=== PATIENT | male | born 1965 | race African-American/Black ===

== ENCOUNTER 2021-08-28 10:51 | Inpatient (IN) | payer OTHER ==
[~2021-08-28] VITALS: Ht 182.9 cm; Wt 180.7 kg
[2021-08-28 12:54] LABS: BASOPHILS % 0.8 % (0.0-2.0); CHLORIDE 101 mEq/L (98-107); HEMATOCRIT. 39.9 % (42.0-52.0); LYMPHOCYTES % 12.9 % (20.0-50.0); MEAN CORPUSCULAR HEMOGLOBIN 28.4 pg (28.0-32.0); MEAN CORPUSCULAR VOLUME 86.8 fL (80.0-94.0); MEAN PLATELET VOLUME 8.8 fl (7.4-10.4); MONOCYTES % 9.9 % (2.0-8.0); NEUTROPHILS % 73.4 % (40.0-76.0); PLATELET 223 x1000/uL (130-400); RED BLOOD CELL COUNT 4.59 mill/uL (4.7-6.1); RED CELL DISTRIBUTION WIDTH 18.5 % (11.6-14.6)
[2021-08-28] MEDS ORDERED: CLONIDINE 0.2MG TABLET PO ONE (16:15)
[2021-08-28] MEDS ORDERED: HYDROCHLOROTHIAZIDE 25MG TABLET PO ONE (16:15)
[2021-08-28] MEDS ORDERED: LABETALOL HCL VIAL 20 MG/4 ML VIAL IV ONE (17:15)
[2021-08-28] MEDS ORDERED: IPRATROPIUM/ALBUTEROL 0.5-3(2.5)MG/3ML NEB NEB PRN (22:30)
[2021-08-28] MEDS ORDERED: MORPHINE SULFATE 2 MG/ML CPJ (NOT FOR IM USE) IV PRN (22:30)
[2021-08-28] MEDS ORDERED: ONDANSETRON HCL 4MG/2ML INJ IV PRN (22:30)
[2021-08-28] MEDS: ACETAMINOPHEN 325MG TABLET PO PRN (23:35)
[2021-08-28] MEDS: AMLODIPINE 10MG TABLET PO SCH (23:35)
[2021-08-28] MEDS: ENOXAPARIN 40MG/0.4ML SYR SUBCUT SCH (23:35)
[2021-08-28 23:39] VITALS: BP 151/88
[2021-08-29] VITALS (7 sets, daily range): BP systolic 115–151; BP diastolic 63–88
[2021-08-29 08:14] LABS: BASOPHILS % 0.3 % (0.0-2.0); EOSINOPHILS % 4.7 % (0.0-5.0); HEMOGLOBIN. 11.3 g/dL (14.0-18.0); LYMPHOCYTES % 12.9 % (20.0-50.0); MEAN CORPUSCULAR HEMOGLOBIN 27.9 pg (28.0-32.0); MEAN CORPUSCULAR VOLUME 86.2 fL (80.0-94.0); MEAN PLATELET VOLUME 8.6 fl (7.4-10.4); MONOCYTES % 12.2 % (2.0-8.0); NEUTROPHILS % 69.9 % (40.0-76.0); PLATELET 199 x1000/uL (130-400); RED BLOOD CELL COUNT 4.06 mill/uL (4.7-6.1); RED CELL DISTRIBUTION WIDTH 18.6 % (11.6-14.6)
[2021-08-29 08:35] LABS: CHLORIDE 102 mEq/L (98-107)
[2021-08-29 08:41] LABS: PHOSPHORUS 3.4 mg/dL (2.5-4.9)
[2021-08-29] MEDS: AMLODIPINE 10MG TABLET PO SCH (08:41)
[2021-08-29 08:43] LABS: CREATINE KINASE 67 IU/L (39-308)
[2021-08-29 08:44] LABS: CREATINE KINASE MB FRACTION 1.6 ng/mL (0.5-3.6)
[2021-08-29 09:25] LABS: CLARITY URINE CLEAR (CLEAR); COLOR URINE DARK YELLOW (YELLOW); KETONES URINE TRACE (NEGATIVE); LEUKOCYTE ESTERASE URINE TRACE (NEGATIVE); NITRITE URINE POSITIVE (NEGATIVE); OCCULT BLOOD URINE NEGATIVE (NEGATIVE); PH URINE 5.5 (4.5-8.0); PROTEIN URINE 1+ (NEGATIVE); SPECIFIC GRAVITY URINE 1.022 (1.005-1.030)
[2021-08-29] MEDS: ENOXAPARIN 40MG/0.4ML SYR SUBCUT SCH (10:08)
[2021-08-29] MEDS ORDERED: MAGNESIUM 2 G PREMIX 50 ML IV SCH (12:00)
[2021-08-29] MEDS: ACETAMINOPHEN 325MG TABLET PO PRN (13:50)
[2021-08-29] MEDS: CEFTRIAXONE 1,000 MG in DEXTROSE 5% WATER 50 ML IV SCH (15:41)
[2021-08-29 17:35] LABS: CREATINE KINASE MB FRACTION 1.5 ng/mL (0.5-3.6)
[2021-08-30] VITALS: BP 139/86
[2021-08-30] MEDS: ENOXAPARIN 40MG/0.4ML SYR SUBCUT SCH ×2 (00:14→10:44)
[2021-08-30 03:47] VITALS: BP 130/82
[2021-08-30 08:00] VITALS: BP 160/94
[2021-08-30] MEDS: AMLODIPINE 10MG TABLET PO SCH (08:14)
[2021-08-30] MEDS: CLONIDINE 0.1MG TABLET PO PRN ×2 (08:15→20:22)
[2021-08-30 12:00] VITALS: BP 146/85
[2021-08-30 16:00] VITALS: BP 140/88
[2021-08-30] MEDS: CEFTRIAXONE 1,000 MG in DEXTROSE 5% WATER 50 ML IV SCH (16:55)
[2021-08-30 20:00] VITALS: BP 172/98
[2021-08-30] MEDS: LOSARTAN POTASSIUM 50 MG TABLET PO SCH (20:45)
[2021-08-31] VITALS: BP 135/80
[2021-08-31] MEDS: ACETAMINOPHEN 325MG TABLET PO PRN (00:10)
[2021-08-31] MEDS: ENOXAPARIN 40MG/0.4ML SYR SUBCUT SCH ×3 (00:10→23:28)
[2021-08-31 04:00] VITALS: BP 153/81
[2021-08-31 08:11] VITALS: BP 147/76
[2021-08-31] MEDS: AMLODIPINE 10MG TABLET PO SCH (08:39)
[2021-08-31] MEDS: LOSARTAN POTASSIUM 50 MG TABLET PO SCH (08:39)
[2021-08-31] MEDS: ASCORBIC ACID 500 MG TABLET PO SCH (08:39)
[2021-08-31] MEDS: ZINC SULFATE 220 MG ( 50 ) CAPSULE PO SCH (08:40)
[2021-08-31 12:25] VITALS: BP 140/91
[2021-08-31 15:33] VITALS: BP 150/89
[2021-08-31] MEDS: CEFTRIAXONE 1,000 MG in DEXTROSE 5% WATER 50 ML IV SCH (15:52)
[2021-08-31] MEDS ORDERED: VITAMINS A AND D OINT TUBE TOP PRN (16:00)
[2021-08-31 20:00] VITALS: BP 147/86
[2021-08-31] MEDS: CLONIDINE 0.1MG TABLET PO PRN (23:31)
[2021-09-01] VITALS: BP 166/98
[2021-09-01 04:00] VITALS: BP 167/106
[2021-09-01] MEDS: CLONIDINE 0.1MG TABLET PO PRN (05:47)
[2021-09-01 07:53] VITALS: BP 143/87
[2021-09-01] MEDS: LOSARTAN POTASSIUM 50 MG TABLET PO SCH (08:49)
[2021-09-01] MEDS: AMLODIPINE 10MG TABLET PO SCH (08:49)
[2021-09-01] MEDS: ASCORBIC ACID 500 MG TABLET PO SCH (08:50)
[2021-09-01] MEDS: ZINC SULFATE 220 MG ( 50 ) CAPSULE PO SCH (08:50)
[2021-09-01] MEDS: ENOXAPARIN 150MG/ML SYR SUBCUT SCH ×2 (10:18→21:36)
[2021-09-01 12:56] VITALS: BP 142/81
[2021-09-01 15:35] VITALS: BP 127/74
[2021-09-01] MEDS: CEFTRIAXONE 1,000 MG in DEXTROSE 5% WATER 50 ML IV SCH (15:44)
[2021-09-01 20:00] VITALS: BP 132/84
[2021-09-01] MEDS: ATORVASTATIN CALCIUM 40MG TABLET PO SCH (21:38)
[2021-09-02] VITALS: BP 132/80
[2021-09-02 04:00] VITALS: BP 129/80
[2021-09-02 06:14] LABS: BASOPHILS % 0.8 % (0.0-2.0); EOSINOPHILS % 4.3 % (0.0-5.0); HEMATOCRIT. 34.3 % (42.0-52.0); HEMOGLOBIN. 11.2 g/dL (14.0-18.0); LYMPHOCYTES % 16.2 % (20.0-50.0); MEAN CORPUSCULAR HEMOGLOBIN 28.2 pg (28.0-32.0); MEAN CORPUSCULAR VOLUME 86.5 fL (80.0-94.0); MEAN PLATELET VOLUME 8.4 fl (7.4-10.4); MONOCYTES % 13.3 % (2.0-8.0); NEUTROPHILS % 65.4 % (40.0-76.0); PLATELET 254 x1000/uL (130-400); RED BLOOD CELL COUNT 3.96 mill/uL (4.7-6.1); RED CELL DISTRIBUTION WIDTH 17.8 % (11.6-14.6)
[2021-09-02 06:31] LABS: INR 1.1; PROTHROMBIN TIME 11.4 sec (9.6-11.0)
[2021-09-02 07:25] LABS: CHLORIDE 101 mEq/L (98-107)
[2021-09-02 08:00] VITALS: BP 139/96
[2021-09-02] MEDS: ASCORBIC ACID 500 MG TABLET PO SCH (08:49)
[2021-09-02] MEDS: ENOXAPARIN 150MG/ML SYR SUBCUT SCH ×2 (08:50→21:12)
[2021-09-02] MEDS: AMLODIPINE 10MG TABLET PO SCH (08:50)
[2021-09-02] MEDS: ZINC SULFATE 220 MG ( 50 ) CAPSULE PO SCH (08:50)
[2021-09-02] MEDS: LOSARTAN POTASSIUM 50 MG TABLET PO SCH (08:50)
[2021-09-02] MEDS: ASPIRIN 81MG TABLET PO SCH (08:51)
[2021-09-02 12:00] VITALS: BP_SYST 115; BP_DIAS 69; BP_DIAS 80
[2021-09-02 16:00] VITALS: BP 108/75
[2021-09-02] MEDS: CEFTRIAXONE 1,000 MG in DEXTROSE 5% WATER 50 ML IV SCH (16:38)
[2021-09-02 17:35] LABS: VITAMIN B12 SERUM 363 pg/mL (211-911)
[2021-09-02 20:00] VITALS: BP_SYST 135; BP_SYST 142; BP_DIAS 80; BP_DIAS 85
[2021-09-02] MEDS: ATORVASTATIN CALCIUM 40MG TABLET PO SCH (21:12)
[2021-09-03] VITALS: BP 115/71
[2021-09-03 04:00] VITALS: BP 148/68
[2021-09-03 08:00] VITALS: BP 134/79
[2021-09-03] MEDS: ZINC SULFATE 220 MG ( 50 ) CAPSULE PO SCH (08:28)
[2021-09-03] MEDS: ENOXAPARIN 150MG/ML SYR SUBCUT SCH (08:28)
[2021-09-03] MEDS: LOSARTAN POTASSIUM 50 MG TABLET PO SCH (08:28)
[2021-09-03] MEDS: ASPIRIN 81MG TABLET PO SCH (08:28)
[2021-09-03] MEDS: ASCORBIC ACID 500 MG TABLET PO SCH (08:29)
[2021-09-03] MEDS: AMLODIPINE 10MG TABLET PO SCH (08:29)
[2021-09-03 12:00] VITALS: BP 120/77
[2021-09-03 16:00] VITALS: BP 125/66
[2021-09-03] MEDS: APIXABAN 5 MG TABLET PO SCH (17:14)
[2021-09-03 20:00] VITALS: BP 137/62
[2021-09-03] MEDS: ATORVASTATIN CALCIUM 40MG TABLET PO SCH (21:45)
[2021-09-04] VITALS: BP 132/87
[2021-09-04 04:00] VITALS: BP 129/76
[2021-09-04 08:00] VITALS: BP 131/73
[2021-09-04] MEDS: ATORVASTATIN CALCIUM 40MG TABLET PO SCH (09:09)
[2021-09-04] MEDS: AMLODIPINE 10MG TABLET PO SCH (09:09)
[2021-09-04] MEDS: ZINC SULFATE 220 MG ( 50 ) CAPSULE PO SCH (09:09)
[2021-09-04] MEDS: ASCORBIC ACID 500 MG TABLET PO SCH (09:09)
[2021-09-04] MEDS: ASPIRIN 81MG TABLET PO SCH (09:10)
[2021-09-04] MEDS: APIXABAN 5 MG TABLET PO SCH ×2 (09:10→19:14)
[2021-09-04] MEDS: LOSARTAN POTASSIUM 50 MG TABLET PO SCH (09:10)
[2021-09-04 12:00] VITALS: BP 128/71
[2021-09-04 16:00] VITALS: BP 132/86
[2021-09-04 20:00] VITALS: BP 127/61
[2021-09-05] VITALS: BP 128/85
[2021-09-05 04:00] VITALS: BP 146/85
[2021-09-05 08:00] VITALS: BP 138/86
[2021-09-05] MEDS: AMLODIPINE 10MG TABLET PO SCH (08:50)
[2021-09-05] MEDS: APIXABAN 5 MG TABLET PO SCH ×2 (08:50→16:55)
[2021-09-05] MEDS: ASPIRIN 81MG TABLET PO SCH (08:50)
[2021-09-05] MEDS: LOSARTAN POTASSIUM 50 MG TABLET PO SCH (08:50)
[2021-09-05] MEDS: ASCORBIC ACID 500 MG TABLET PO SCH (08:50)
[2021-09-05] MEDS: ZINC SULFATE 220 MG ( 50 ) CAPSULE PO SCH (08:50)
[2021-09-05 12:00] VITALS: BP 126/78
[2021-09-05 16:00] VITALS: BP 120/73
[2021-09-05 20:00] VITALS: BP 131/80
[2021-09-05] MEDS: ATORVASTATIN CALCIUM 40MG TABLET PO SCH (21:58)
[2021-09-06] VITALS (7 sets, daily range): BP systolic 110–158; BP diastolic 70–101
[2021-09-06] MEDS: CLONIDINE 0.1MG TABLET PO PRN (04:36)
[2021-09-06] MEDS: AMLODIPINE 10MG TABLET PO SCH (08:30)
[2021-09-06] MEDS: ASCORBIC ACID 500 MG TABLET PO SCH (08:30)
[2021-09-06] MEDS: LOSARTAN POTASSIUM 50 MG TABLET PO SCH (08:30)
[2021-09-06] MEDS: ASPIRIN 81MG TABLET PO SCH (08:30)
[2021-09-06] MEDS: ZINC SULFATE 220 MG ( 50 ) CAPSULE PO SCH (08:31)
[2021-09-06] MEDS: APIXABAN 5 MG TABLET PO SCH ×2 (08:31→17:15)
[2021-09-06] MEDS: ATORVASTATIN CALCIUM 40MG TABLET PO SCH (20:34)
[2021-09-07] VITALS: BP 145/79
[2021-09-07 04:00] VITALS: BP 115/77
[2021-09-07 08:00] VITALS: BP 139/87
[2021-09-07] MEDS: ASPIRIN 81MG TABLET PO SCH (09:17)
[2021-09-07] MEDS: ZINC SULFATE 220 MG ( 50 ) CAPSULE PO SCH (09:17)
[2021-09-07] MEDS: LOSARTAN POTASSIUM 50 MG TABLET PO SCH (09:17)
[2021-09-07] MEDS: APIXABAN 5 MG TABLET PO SCH ×2 (09:17→16:46)
[2021-09-07] MEDS: ASCORBIC ACID 500 MG TABLET PO SCH (09:17)
[2021-09-07] MEDS: AMLODIPINE 10MG TABLET PO SCH (09:18)
[2021-09-07 12:00] VITALS: BP 129/81
[2021-09-07 16:00] VITALS: BP 114/62
[2021-09-07] MEDS: CYANOCOBALAMIN 1000MCG/ML VIAL IM SCH (16:46)
[2021-09-07 20:00] VITALS: BP 119/73
[2021-09-07] MEDS: ATORVASTATIN CALCIUM 40MG TABLET PO SCH (20:11)
[2021-09-08] VITALS: BP 114/67
[2021-09-08 04:00] VITALS: BP 115/69
[2021-09-08 08:00] VITALS: BP 131/82
[2021-09-08] MEDS: ASCORBIC ACID 500 MG TABLET PO SCH (08:30)
[2021-09-08] MEDS: ASPIRIN 81MG TABLET PO SCH (08:30)
[2021-09-08] MEDS: ZINC SULFATE 220 MG ( 50 ) CAPSULE PO SCH (08:31)
[2021-09-08] MEDS: AMLODIPINE 10MG TABLET PO SCH (08:31)
[2021-09-08] MEDS: LOSARTAN POTASSIUM 50 MG TABLET PO SCH (08:31)
[2021-09-08] MEDS: CYANOCOBALAMIN 1000MCG/ML VIAL IM SCH (08:31)
[2021-09-08] MEDS: APIXABAN 5 MG TABLET PO SCH ×2 (08:34→17:49)
[2021-09-08 11:36] LABS: BASOPHILS % 0.3 % (0.0-2.0); HEMATOCRIT. 36.5 % (42.0-52.0); HEMOGLOBIN. 11.7 g/dL (14.0-18.0); LYMPHOCYTES % 16.6 % (20.0-50.0); MEAN CORPUSCULAR HEMOGLOBIN 28.4 pg (28.0-32.0); MEAN CORPUSCULAR VOLUME 88.2 fL (80.0-94.0); MONOCYTES % 7.7 % (2.0-8.0); NEUTROPHILS % 71.4 % (40.0-76.0); PLATELET 438 x1000/uL (130-400); RED BLOOD CELL COUNT 4.14 mill/uL (4.7-6.1); RED CELL DISTRIBUTION WIDTH 16.8 % (11.6-14.6)
[2021-09-08 12:00] VITALS: BP 127/82
[2021-09-08 12:04] LABS: CHLORIDE 102 mEq/L (98-107)
[2021-09-08 16:00] VITALS: BP 130/80
[2021-09-08 20:00] VITALS: BP 123/85
[2021-09-08] MEDS: ATORVASTATIN CALCIUM 40MG TABLET PO SCH (20:32)
[2021-09-09] VITALS: BP 127/74
[2021-09-09 04:00] VITALS: BP 120/69
[2021-09-09 06:00] VITALS: BP 133/84
[2021-09-09 08:00] VITALS: BP 124/74
[2021-09-09] MEDS: CYANOCOBALAMIN 1000MCG/ML VIAL IM SCH (10:38)
[2021-09-09] MEDS: ZINC SULFATE 220 MG ( 50 ) CAPSULE PO SCH (10:39)
[2021-09-09] MEDS: ASCORBIC ACID 500 MG TABLET PO SCH (10:39)
[2021-09-09] MEDS: ASPIRIN 81MG TABLET PO SCH (10:39)
[2021-09-09] MEDS: APIXABAN 5 MG TABLET PO SCH ×2 (10:39→17:27)
[2021-09-09] MEDS: AMLODIPINE 10MG TABLET PO SCH (10:40)
[2021-09-09 12:00] VITALS: BP 130/74
[2021-09-09 20:00] VITALS: BP 122/59
[2021-09-09] MEDS: ATORVASTATIN CALCIUM 40MG TABLET PO SCH (20:45)
[2021-09-10] VITALS: BP 129/80
[2021-09-10 04:00] VITALS: BP 134/83
[2021-09-10 08:00] VITALS: BP 133/86
[2021-09-10] MEDS: CYANOCOBALAMIN 1000MCG/ML VIAL IM SCH (08:20)
[2021-09-10] MEDS: ZINC SULFATE 220 MG ( 50 ) CAPSULE PO SCH (08:21)
[2021-09-10] MEDS: APIXABAN 5 MG TABLET PO SCH ×2 (08:21→16:45)
[2021-09-10] MEDS: ASPIRIN 81MG TABLET PO SCH (08:21)
[2021-09-10] MEDS: ASCORBIC ACID 500 MG TABLET PO SCH (08:21)
[2021-09-10] MEDS: AMLODIPINE 10MG TABLET PO SCH (08:21)
[2021-09-10 12:00] VITALS: BP 129/81
[2021-09-10 16:00] VITALS: BP 136/83
[2021-09-10 20:00] VITALS: BP 133/61
[2021-09-10] MEDS: ATORVASTATIN CALCIUM 40MG TABLET PO SCH (21:10)
[2021-09-11] VITALS: BP 137/95
[2021-09-11 04:00] VITALS: BP_SYST 124; BP_SYST 129; BP_DIAS 58; BP_DIAS 63
[2021-09-11 08:00] VITALS: BP 146/89
[2021-09-11] MEDS: APIXABAN 5 MG TABLET PO SCH ×2 (09:28→16:46)
[2021-09-11] MEDS: CYANOCOBALAMIN 1000MCG/ML VIAL IM SCH (09:29)
[2021-09-11] MEDS: AMLODIPINE 10MG TABLET PO SCH (09:29)
[2021-09-11] MEDS: ASPIRIN 81MG TABLET PO SCH (09:29)
[2021-09-11] MEDS: ASCORBIC ACID 500 MG TABLET PO SCH (09:29)
[2021-09-11] MEDS: ZINC SULFATE 220 MG ( 50 ) CAPSULE PO SCH (09:29)
[2021-09-11 12:00] VITALS: BP 120/78
[2021-09-11 16:00] VITALS: BP 129/64
[2021-09-11 20:00] VITALS: BP 134/74
[2021-09-11] MEDS: ATORVASTATIN CALCIUM 40MG TABLET PO SCH (20:36)
[2021-09-12] VITALS: BP 109/66
[2021-09-12 04:00] VITALS: BP 139/88
[2021-09-12 08:00] VITALS: BP 141/82
[2021-09-12] MEDS: ASPIRIN 81MG TABLET PO SCH (08:41)
[2021-09-12] MEDS: CYANOCOBALAMIN 1000MCG/ML VIAL IM SCH (08:41)
[2021-09-12] MEDS: ZINC SULFATE 220 MG ( 50 ) CAPSULE PO SCH (08:41)
[2021-09-12] MEDS: APIXABAN 5 MG TABLET PO SCH ×2 (08:41→16:27)
[2021-09-12] MEDS: ASCORBIC ACID 500 MG TABLET PO SCH (08:41)
[2021-09-12] MEDS: AMLODIPINE 10MG TABLET PO SCH (08:41)
[2021-09-12 12:00] VITALS: BP 118/75
[2021-09-12 16:00] VITALS: BP 130/83
[2021-09-12 20:00] VITALS: BP 127/69
[2021-09-12] MEDS: ATORVASTATIN CALCIUM 40MG TABLET PO SCH (20:53)
[2021-09-13] VITALS: BP 138/76
[2021-09-13 04:00] VITALS: BP 127/77
[2021-09-13 08:00] VITALS: BP 126/77
[2021-09-13] MEDS: ASPIRIN 81MG TABLET PO SCH (09:58)
[2021-09-13] MEDS: ASCORBIC ACID 500 MG TABLET PO SCH (09:58)
[2021-09-13] MEDS: AMLODIPINE 10MG TABLET PO SCH (09:58)
[2021-09-13] MEDS: CYANOCOBALAMIN 1000MCG/ML VIAL IM SCH (09:58)
[2021-09-13] MEDS: ZINC SULFATE 220 MG ( 50 ) CAPSULE PO SCH (09:58)
[2021-09-13] MEDS: APIXABAN 5 MG TABLET PO SCH ×2 (09:58→17:56)
[2021-09-13 20:00] VITALS: BP 131/85
[2021-09-13] MEDS: ATORVASTATIN CALCIUM 40MG TABLET PO SCH (22:25)
[2021-09-14] VITALS: BP 121/75
[2021-09-14 04:00] VITALS: BP 124/83
[2021-09-14 08:00] VITALS: BP 126/79
[2021-09-14 08:11] LABS: HEMATOCRIT. 35.7 % (42.0-52.0); HEMOGLOBIN. 11.9 g/dL (14.0-18.0); MEAN CORPUSCULAR HEMOGLOBIN 28.7 pg (28.0-32.0); MEAN CORPUSCULAR VOLUME 85.9 fL (80.0-94.0); PLATELET 494 x1000/uL (130-400); RED BLOOD CELL COUNT 4.16 mill/uL (4.7-6.1); RED CELL DISTRIBUTION WIDTH 16.6 % (11.6-14.6)
[2021-09-14 08:13] LABS: CHLORIDE 100 mEq/L (98-107)
[2021-09-14 08:52] LABS: PLATELET ESTIMATE INCREASED
[2021-09-14] MEDS: ZINC SULFATE 220 MG ( 50 ) CAPSULE PO SCH (10:08)
[2021-09-14] MEDS: AMLODIPINE 10MG TABLET PO SCH (10:08)
[2021-09-14] MEDS: APIXABAN 5 MG TABLET PO SCH ×2 (10:09→16:13)
[2021-09-14] MEDS: ASPIRIN 81MG TABLET PO SCH (10:09)
[2021-09-14] MEDS: ASCORBIC ACID 500 MG TABLET PO SCH (10:09)
[2021-09-14 12:00] VITALS: BP 139/77
[2021-09-14 16:00] VITALS: BP 117/71
[2021-09-14 20:00] VITALS: BP 141/91
[2021-09-14] MEDS: ATORVASTATIN CALCIUM 40MG TABLET PO SCH (20:30)
[2021-09-15] VITALS: BP 145/83
[2021-09-15 04:00] VITALS: BP 124/86
[2021-09-15 08:00] VITALS: BP 131/83
[2021-09-15] MEDS: ASCORBIC ACID 500 MG TABLET PO SCH (09:11)
[2021-09-15] MEDS: ASPIRIN 81MG TABLET PO SCH (09:11)
[2021-09-15] MEDS: APIXABAN 5 MG TABLET PO SCH ×2 (09:11→16:54)
[2021-09-15] MEDS: AMLODIPINE 10MG TABLET PO SCH (09:11)
[2021-09-15] MEDS: ZINC SULFATE 220 MG ( 50 ) CAPSULE PO SCH (09:11)
[2021-09-15 12:00] VITALS: BP 142/86
[2021-09-15 16:00] VITALS: BP 116/65
[2021-09-15 20:00] VITALS: BP 124/75
[2021-09-15] MEDS: ATORVASTATIN CALCIUM 40MG TABLET PO SCH (22:10)
[2021-09-16] VITALS: BP 114/68
[2021-09-16 04:00] VITALS: BP 133/70
[2021-09-16 08:00] VITALS: BP 132/77
[2021-09-16] MEDS: AMLODIPINE 10MG TABLET PO SCH (09:22)
[2021-09-16] MEDS: ASCORBIC ACID 500 MG TABLET PO SCH (09:22)
[2021-09-16] MEDS: ASPIRIN 81MG TABLET PO SCH (09:22)
[2021-09-16] MEDS: ZINC SULFATE 220 MG ( 50 ) CAPSULE PO SCH (09:22)
[2021-09-16] MEDS: APIXABAN 5 MG TABLET PO SCH ×2 (09:22→19:26)
[2021-09-16 12:00] VITALS: BP 124/97
[2021-09-16 16:00] VITALS: BP 138/82
[2021-09-16 20:00] VITALS: BP 130/84
[2021-09-16] MEDS: ATORVASTATIN CALCIUM 40MG TABLET PO SCH (21:31)
[2021-09-17] VITALS: BP 127/74
[2021-09-17 04:00] VITALS: BP 130/69
[2021-09-17 08:00] VITALS: BP 133/88
[2021-09-17] MEDS: ZINC SULFATE 220 MG ( 50 ) CAPSULE PO SCH (09:44)
[2021-09-17] MEDS: ASCORBIC ACID 500 MG TABLET PO SCH (09:44)
[2021-09-17] MEDS: APIXABAN 5 MG TABLET PO SCH ×2 (09:44→18:02)
[2021-09-17] MEDS: ASPIRIN 81MG TABLET PO SCH (09:44)
[2021-09-17] MEDS: AMLODIPINE 10MG TABLET PO SCH (09:44)
[2021-09-17 12:00] VITALS: BP 128/90
[2021-09-17 16:00] VITALS: BP 118/76
[2021-09-17 20:00] VITALS: BP 124/71
[2021-09-17] MEDS: ATORVASTATIN CALCIUM 40MG TABLET PO SCH (21:43)
[2021-09-18] VITALS: BP 136/68
[2021-09-18 04:00] VITALS: BP 130/77
[2021-09-18 08:00] VITALS: BP 140/86
[2021-09-18] MEDS: APIXABAN 5 MG TABLET PO SCH ×2 (08:10→17:17)
[2021-09-18] MEDS: ASPIRIN 81MG TABLET PO SCH (08:10)
[2021-09-18] MEDS: ZINC SULFATE 220 MG ( 50 ) CAPSULE PO SCH (08:10)
[2021-09-18] MEDS: ASCORBIC ACID 500 MG TABLET PO SCH (08:10)
[2021-09-18] MEDS: AMLODIPINE 10MG TABLET PO SCH (08:24)
[2021-09-18 12:00] VITALS: BP 136/92
[2021-09-18] MEDS: ATORVASTATIN CALCIUM 40MG TABLET PO SCH (20:43)
[2021-09-19 04:00] VITALS: BP 124/80
[2021-09-19 08:00] VITALS: BP 115/73
[2021-09-19] MEDS: ASCORBIC ACID 500 MG TABLET PO SCH (08:28)
[2021-09-19] MEDS: ZINC SULFATE 220 MG ( 50 ) CAPSULE PO SCH (08:28)
[2021-09-19] MEDS: APIXABAN 5 MG TABLET PO SCH ×2 (08:28→17:29)
[2021-09-19] MEDS: AMLODIPINE 10MG TABLET PO SCH (08:28)
[2021-09-19] MEDS: ASPIRIN 81MG TABLET PO SCH (08:29)
[2021-09-19 12:12] VITALS: BP 120/77
[2021-09-19] MEDS ORDERED: APIX5TAB PO (12:42)
[2021-09-19] MEDS ORDERED: AMLO10TA80 PO (12:42)
[2021-09-19 13:49] VITALS: BP 120/70
[2021-09-19 16:00] VITALS: BP 131/75
[2021-09-19] MEDS ORDERED: LISI-186 MT (18:13)
[2021-09-19] MEDS ORDERED: ALBU6.7H9 INH (19:27)
[2021-09-19] MEDS ORDERED: FURO20TA4 MT (19:27)
[2021-09-19] MEDS ORDERED: CARV6.2548 MT (19:27)
[2021-09-19] MEDS ORDERED: ISOS30TA91 MT (19:27)
[2021-09-19 20:00] VITALS: BP 119/73
[2021-09-19] MEDS: ATORVASTATIN CALCIUM 40MG TABLET PO SCH (21:23)
[2021-09-20] VITALS: BP 115/64
[2021-09-20 04:00] VITALS: BP 132/75
[2021-09-20 08:00] VITALS: BP 130/75
[2021-09-20] MEDS: ZINC SULFATE 220 MG ( 50 ) CAPSULE PO SCH (08:43)
[2021-09-20] MEDS: ASCORBIC ACID 500 MG TABLET PO SCH (08:43)
[2021-09-20] MEDS: AMLODIPINE 10MG TABLET PO SCH (08:44)
[2021-09-20] MEDS: ASPIRIN 81MG TABLET PO SCH (08:44)
[2021-09-20] MEDS: APIXABAN 5 MG TABLET PO SCH ×2 (08:45→18:17)
[2021-09-20 12:00] VITALS: BP 119/78
[2021-09-20 16:00] VITALS: BP 128/83
[2021-09-20 20:00] VITALS: BP 112/68
[2021-09-20] MEDS: ATORVASTATIN CALCIUM 40MG TABLET PO SCH (21:03)
[2021-09-21] VITALS: BP 118/62
[2021-09-21 04:00] VITALS: BP 126/75
[2021-09-21 08:00] VITALS: BP 136/81
[2021-09-21] MEDS: ASPIRIN 81MG TABLET PO SCH (08:25)
[2021-09-21] MEDS: APIXABAN 5 MG TABLET PO SCH (08:25)
[2021-09-21] MEDS: ZINC SULFATE 220 MG ( 50 ) CAPSULE PO SCH (08:25)
[2021-09-21] MEDS: AMLODIPINE 10MG TABLET PO SCH (08:25)
[2021-09-21] MEDS: ASCORBIC ACID 500 MG TABLET PO SCH (08:25)
[2021-09-21 12:00] VITALS: BP 146/85
[2021-09-21 15:33] VITALS: BP 136/81
== END 2021-09-21 16:09 | disposition home health service (06) | DRG 871 ==
LOC: ER 10:51 → 8WST 17:06 → EDBEDREQSVC 17:11 → EDBEDREQ 17:11 → ENRESERV 21:06 → 8WST 22:47 → 6EST 09-19 16:23
PROVIDERS: ADMIT Internal Medicine Nephrology; ATTEND Internal Medicine Nephrology
DX: A41.9 Sepsis, unspecified organism (principal); I63.9 Cerebral infarction, unspecified; E44.0 Moderate protein-calorie malnutrition; N39.0 Urinary tract infection, site not specified; Z68.43 Body mass index [BMI] 50.0-59.9, adult; G82.20 Paraplegia, unspecified; I82.403 Acute embolism and thrombosis of unspecified deep veins of lower extremity, bilateral; E66.01 Morbid (severe) obesity due to excess calories; E83.42 Hypomagnesemia; I11.0 Hypertensive heart disease with heart failure; I16.0 Hypertensive urgency; I50.9 Heart failure, unspecified; E83.51 Hypocalcemia; Z20.822 Contact with and (suspected) exposure to COVID-19; E88.09 Other disorders of plasma-protein metabolism, not elsewhere classified; L89.90 Pressure ulcer of unspecified site, unspecified stage; R29.6 Repeated falls; G57.90 Unspecified mononeuropathy of unspecified lower limb; L89.226 Pressure-induced deep tissue damage of left hip; E53.8 Deficiency of other specified B group vitamins; Z79.01 Long term (current) use of anticoagulants
CPT/HCPCS: 36415; 71045; 72170; 73552; 73560; 80048; 80053; 80061; 81003; 82040; 82550; 82553; 82607; 83036; 83735; 83880; 84100; 84134; 84153; 84443; 84484; 85025; 87426; 93970; 97110; 97116; 97162; 97166; 97530; 97535; 99291; J0696; J1650; J3420; J3475; J3490; J7060; G0103

== ENCOUNTER 2021-09-25 14:54 | Inpatient (IN) | payer OTHER ==
[~2021-09-25] VITALS: Ht 182.9 cm; Wt 166.9 kg
[~2021-09-25 14:54] MED LIST: ALBU6.7H9 INH; AMLO10TA80 PO; APIX5TAB PO; CARV6.2548 MT; FURO20TA4 MT; ISOS30TA91 MT; LISI-186 MT
[2021-09-25 15:39] LABS: BASOPHILS % 0.5 % (0.0-2.0); EOSINOPHILS % 1.7 % (0.0-5.0); HEMATOCRIT. 37.4 % (42.0-52.0); HEMOGLOBIN. 12.2 g/dL (14.0-18.0); LYMPHOCYTES % 10.3 % (20.0-50.0); MEAN CORPUSCULAR HEMOGLOBIN 28.6 pg (28.0-32.0); MEAN CORPUSCULAR VOLUME 87.2 fL (80.0-94.0); MEAN PLATELET VOLUME 8.1 fl (7.4-10.4); MONOCYTES % 9.3 % (2.0-8.0); NEUTROPHILS % 78.2 % (40.0-76.0); PLATELET 308 x1000/uL (130-400); RED BLOOD CELL COUNT 4.28 mill/uL (4.7-6.1); RED CELL DISTRIBUTION WIDTH 15.9 % (11.6-14.6)
[2021-09-25 15:50] LABS: CHLORIDE 103 mEq/L (98-107)
[2021-09-25 16:01] LABS: CREATINE KINASE 731 IU/L (39-308); ETHANOL BLOOD < 10 mg/dL
[2021-09-25] MEDS ORDERED: SODIUM CHLORIDE 0.9% 1,000 ML IV ONE (19:15)
[2021-09-26] VITALS (8 sets, daily range): BP systolic 107–129; BP diastolic 54–82
[2021-09-26] MEDS ORDERED: ONDANSETRON HCL 4MG/2ML INJ IV PRN (01:00)
[2021-09-26] MEDS ORDERED: AMLO10TA80 PO (01:06)
[2021-09-26] MEDS: SODIUM CHLORIDE 0.9% 1,000 ML IV SCH ×2 (01:29→15:23)
[2021-09-26 06:35] LABS: BASOPHILS % 0.3 % (0.0-2.0); EOSINOPHILS % 3.9 % (0.0-5.0); HEMATOCRIT. 34.6 % (42.0-52.0); HEMOGLOBIN. 11.3 g/dL (14.0-18.0); LYMPHOCYTES % 18.1 % (20.0-50.0); MEAN CORPUSCULAR HEMOGLOBIN 28.8 pg (28.0-32.0); MEAN CORPUSCULAR VOLUME 87.9 fL (80.0-94.0); MEAN PLATELET VOLUME 8.4 fl (7.4-10.4); MONOCYTES % 10.7 % (2.0-8.0); PLATELET 277 x1000/uL (130-400); RED BLOOD CELL COUNT 3.94 mill/uL (4.7-6.1)
[2021-09-26 06:54] LABS: CHLORIDE 104 mEq/L (98-107)
[2021-09-26] MEDS: APIXABAN 5 MG TABLET PO SCH ×2 (08:16→16:31)
[2021-09-26] MEDS: ASPIRIN 81MG TABLET PO SCH (08:16)
[2021-09-26] MEDS: FAMOTIDINE 20MG TABLET PO SCH ×2 (08:16→20:49)
[2021-09-26] MEDS: AMLODIPINE 5MG TABLET PO SCH (08:16)
[2021-09-26 15:43] LABS: CLARITY URINE CLEAR (CLEAR); COLOR URINE YELLOW (YELLOW); KETONES URINE NEGATIVE (NEGATIVE); LEUKOCYTE ESTERASE URINE NEGATIVE (NEGATIVE); NITRITE URINE NEGATIVE (NEGATIVE); OCCULT BLOOD URINE NEGATIVE (NEGATIVE); PROTEIN URINE NEGATIVE (NEGATIVE); SPECIFIC GRAVITY URINE 1.023 (1.005-1.030)
[2021-09-26 15:55] LABS: *AMPHETAMINES SCREEN URINE PRESUMTIVE POSITIVE (NEGATIVE); *BARBITURATES SCREEN URINE NEGATIVE (NEGATIVE); *BENZODIAZEPINES SCREEN URINE NEGATIVE (NEGATIVE); *COCAINE SCREEN URINE NEGATIVE (NEGATIVE); CANNABINOID URINE SCREEN NEGATIVE (NEGATIVE); METHADONE URINE SCREEN NEGATIVE (NEGATIVE); OPIATES URINE SCREEN NEGATIVE (NEGATIVE); PHENCYCLIDINE URINE SCREEN NEGATIVE (NEGATIVE)
[2021-09-27] VITALS: BP 134/85
[2021-09-27 04:00] VITALS: BP 162/98
[2021-09-27] MEDS: CLONIDINE 0.1MG TABLET PO PRN (04:10)
[2021-09-27] MEDS: SODIUM CHLORIDE 0.9% 1,000 ML IV SCH ×2 (05:06→21:04)
[2021-09-27 08:00] VITALS: BP 128/82
[2021-09-27] MEDS: FAMOTIDINE 20MG TABLET PO SCH ×2 (08:24→21:06)
[2021-09-27] MEDS: APIXABAN 5 MG TABLET PO SCH ×2 (08:24→16:24)
[2021-09-27] MEDS: ASPIRIN 81MG TABLET PO SCH (08:25)
[2021-09-27] MEDS: AMLODIPINE 5MG TABLET PO SCH (08:25)
[2021-09-27 12:00] VITALS: BP 148/88
[2021-09-27 16:00] VITALS: BP 136/87
[2021-09-27] MEDS: AMMONIUM LACTATE 12% LOTION 240ML TOP SCH (16:24)
[2021-09-27 20:00] VITALS: BP 142/85
[2021-09-28] VITALS: BP 144/90
[2021-09-28 04:00] VITALS: BP 154/94
[2021-09-28 08:00] VITALS: BP 145/87
[2021-09-28] MEDS: AMLODIPINE 5MG TABLET PO SCH (08:53)
[2021-09-28] MEDS: APIXABAN 5 MG TABLET PO SCH ×2 (08:53→17:25)
[2021-09-28] MEDS: ASPIRIN 81MG TABLET PO SCH (08:53)
[2021-09-28] MEDS: AMMONIUM LACTATE 12% LOTION 240ML TOP SCH ×2 (08:53→17:25)
[2021-09-28] MEDS: FAMOTIDINE 20MG TABLET PO SCH ×2 (08:53→20:52)
[2021-09-28 12:00] VITALS: BP 147/80
[2021-09-28] MEDS: SODIUM CHLORIDE 0.9% 1,000 ML IV SCH (13:19)
[2021-09-28 16:00] VITALS: BP 138/75
[2021-09-28 20:00] VITALS: BP 163/97
[2021-09-28] MEDS: CLONIDINE 0.1MG TABLET PO PRN (20:52)
[2021-09-29] VITALS: BP_SYST 154; BP_SYST 158; BP_DIAS 92; BP_DIAS 96
[2021-09-29] MEDS: SODIUM CHLORIDE 0.9% 1,000 ML IV SCH ×2 (00:35→15:26)
[2021-09-29 04:00] VITALS: BP 158/96
[2021-09-29] MEDS: CLONIDINE 0.1MG TABLET PO PRN (05:37)
[2021-09-29 08:00] VITALS: BP 162/102
[2021-09-29] MEDS: FAMOTIDINE 20MG TABLET PO SCH ×2 (08:44→21:08)
[2021-09-29] MEDS: AMLODIPINE 5MG TABLET PO SCH (08:44)
[2021-09-29] MEDS: ASPIRIN 81MG TABLET PO SCH (08:44)
[2021-09-29] MEDS: APIXABAN 5 MG TABLET PO SCH ×2 (08:44→17:11)
[2021-09-29] MEDS: AMMONIUM LACTATE 12% LOTION 240ML TOP SCH ×2 (08:45→17:11)
[2021-09-29 12:00] VITALS: BP 148/99
[2021-09-29] MEDS: ACETAMINOPHEN 325MG TABLET PO PRN (15:24)
[2021-09-29 16:00] VITALS: BP 139/99
[2021-09-29 20:00] VITALS: BP 148/99
[2021-09-30] VITALS: BP 151/85
[2021-09-30 04:00] VITALS: BP 151/87
[2021-09-30 05:45] LABS: BASOPHILS % 0.6 % (0.0-2.0); HEMATOCRIT. 33.8 % (42.0-52.0); HEMOGLOBIN. 11.1 g/dL (14.0-18.0); LYMPHOCYTES % 22.5 % (20.0-50.0); MEAN CORPUSCULAR HEMOGLOBIN 28.5 pg (28.0-32.0); MEAN PLATELET VOLUME 7.8 fl (7.4-10.4); MONOCYTES % 8.2 % (2.0-8.0); NEUTROPHILS % 63.7 % (40.0-76.0); PLATELET 251 x1000/uL (130-400); RED BLOOD CELL COUNT 3.88 mill/uL (4.7-6.1); RED CELL DISTRIBUTION WIDTH 15.8 % (11.6-14.6)
[2021-09-30 06:13] LABS: CHLORIDE 105 mEq/L (98-107)
[2021-09-30 08:00] VITALS: BP 153/98
[2021-09-30] MEDS: AMMONIUM LACTATE 12% LOTION 240ML TOP SCH ×2 (09:00→16:48)
[2021-09-30] MEDS: ASPIRIN 81MG TABLET PO SCH (09:55)
[2021-09-30] MEDS: FAMOTIDINE 20MG TABLET PO SCH ×2 (09:55→20:20)
[2021-09-30] MEDS: AMLODIPINE 5MG TABLET PO SCH (09:56)
[2021-09-30] MEDS: ACETAMINOPHEN 325MG TABLET PO PRN (09:56)
[2021-09-30] MEDS: APIXABAN 5 MG TABLET PO SCH ×2 (09:56→16:48)
[2021-09-30 12:00] VITALS: BP 159/96
[2021-09-30 16:00] VITALS: BP 158/97
[2021-09-30 20:00] VITALS: BP 160/93
[2021-09-30] MEDS: CLONIDINE 0.1MG TABLET PO PRN (20:53)
[2021-10-01] VITALS: BP 183/120
[2021-10-01] MEDS: CLONIDINE 0.1MG TABLET PO PRN ×2 (01:04→09:27)
[2021-10-01 04:00] VITALS: BP 172/110
[2021-10-01 08:00] VITALS: BP 161/106
[2021-10-01] MEDS: APIXABAN 5 MG TABLET PO SCH ×2 (08:33→16:29)
[2021-10-01] MEDS: ASPIRIN 81MG TABLET PO SCH (08:33)
[2021-10-01] MEDS: FAMOTIDINE 20MG TABLET PO SCH ×2 (08:33→21:08)
[2021-10-01] MEDS: AMLODIPINE 5MG TABLET PO SCH (08:38)
[2021-10-01] MEDS: AMMONIUM LACTATE 12% LOTION 240ML TOP SCH ×2 (08:43→16:30)
[2021-10-01] MEDS: HYDROCODONE/ACETAMINOPHEN 5/325MG TABLET PO PRN (09:35)
[2021-10-01 12:00] VITALS: BP 145/89
[2021-10-01] MEDS ORDERED: NALOXONE HCL 0.4MG/ML VIAL IV PRN (15:30)
[2021-10-01 16:00] VITALS: BP 124/79
[2021-10-01 20:00] VITALS: BP 120/75
[2021-10-02] VITALS: BP 154/84
[2021-10-02 08:00] VITALS: BP 126/90
[2021-10-02] MEDS: ASPIRIN 81MG TABLET PO SCH (08:54)
[2021-10-02] MEDS: AMLODIPINE 5MG TABLET PO SCH (08:54)
[2021-10-02] MEDS: APIXABAN 5 MG TABLET PO SCH ×2 (08:54→17:44)
[2021-10-02] MEDS: FAMOTIDINE 20MG TABLET PO SCH ×2 (08:54→20:29)
[2021-10-02] MEDS: AMMONIUM LACTATE 12% LOTION 240ML TOP SCH ×2 (08:56→17:45)
[2021-10-02 12:00] VITALS: BP 118/79
[2021-10-02 16:00] VITALS: BP 150/77
[2021-10-02] MEDS: HYDROCODONE/ACETAMINOPHEN 5/325MG TABLET PO PRN (17:44)
[2021-10-02 20:00] VITALS: BP 158/84
[2021-10-03] VITALS (7 sets, daily range): BP systolic 121–153; BP diastolic 74–97
[2021-10-03] MEDS: APIXABAN 5 MG TABLET PO SCH ×2 (09:08→18:03)
[2021-10-03] MEDS: FAMOTIDINE 20MG TABLET PO SCH ×2 (09:08→20:44)
[2021-10-03] MEDS: AMMONIUM LACTATE 12% LOTION 240ML TOP SCH ×2 (09:08→18:03)
[2021-10-03] MEDS: AMLODIPINE 5MG TABLET PO SCH (09:08)
[2021-10-03] MEDS: ASPIRIN 81MG TABLET PO SCH (09:08)
[2021-10-04] VITALS: BP 135/90
[2021-10-04 04:00] VITALS: BP 163/79
[2021-10-04 08:00] VITALS: BP 133/83
[2021-10-04] MEDS: FAMOTIDINE 20MG TABLET PO SCH ×2 (09:31→20:51)
[2021-10-04] MEDS: AMMONIUM LACTATE 12% LOTION 240ML TOP SCH ×2 (09:31→16:51)
[2021-10-04] MEDS: APIXABAN 5 MG TABLET PO SCH ×2 (09:31→16:51)
[2021-10-04] MEDS: ASPIRIN 81MG TABLET PO SCH (09:31)
[2021-10-04] MEDS: AMLODIPINE 5MG TABLET PO SCH (09:31)
[2021-10-04 12:00] VITALS: BP 130/83
[2021-10-04 16:00] VITALS: BP 113/73
[2021-10-04 20:00] VITALS: BP 118/74
[2021-10-05] VITALS: BP 139/91
[2021-10-05 04:00] VITALS: BP 149/95
[2021-10-05 08:00] VITALS: BP 144/87
[2021-10-05] MEDS: ASCORBIC ACID 500 MG TABLET PO SCH (09:21)
[2021-10-05] MEDS: FAMOTIDINE 20MG TABLET PO SCH ×2 (09:21→20:49)
[2021-10-05] MEDS: MULTIVITAMINS,THER W-MINERALS TABLET PO SCH (09:21)
[2021-10-05] MEDS: APIXABAN 5 MG TABLET PO SCH ×2 (09:22→17:52)
[2021-10-05] MEDS: ZINC SULFATE 220 MG ( 50 ) CAPSULE PO SCH (09:22)
[2021-10-05] MEDS: ASPIRIN 81MG TABLET PO SCH (09:22)
[2021-10-05] MEDS: AMMONIUM LACTATE 12% LOTION 240ML TOP SCH ×2 (09:23→17:52)
[2021-10-05] MEDS: AMLODIPINE 5MG TABLET PO SCH (09:32)
[2021-10-05 12:00] VITALS: BP 136/92
[2021-10-05 16:00] VITALS: BP 128/80
[2021-10-05 16:49] LABS: TOTAL IRON BINDING CAPACITY 218 ug/dL (250-450)
[2021-10-05 17:16] LABS: FOLIC ACID (FOLATE) SERUM 6.3 ng/mL (>5.38)
[2021-10-05 20:00] VITALS: BP 140/81
[2021-10-06] VITALS (7 sets, daily range): BP systolic 128–160; BP diastolic 71–103
[2021-10-06] MEDS: APIXABAN 5 MG TABLET PO SCH ×2 (09:04→17:43)
[2021-10-06] MEDS: AMMONIUM LACTATE 12% LOTION 240ML TOP SCH ×2 (09:04→17:43)
[2021-10-06] MEDS: MULTIVITAMINS,THER W-MINERALS TABLET PO SCH (09:04)
[2021-10-06] MEDS: ASCORBIC ACID 500 MG TABLET PO SCH (09:04)
[2021-10-06] MEDS: FAMOTIDINE 20MG TABLET PO SCH ×2 (09:04→20:23)
[2021-10-06] MEDS: ZINC SULFATE 220 MG ( 50 ) CAPSULE PO SCH (09:04)
[2021-10-06] MEDS: ASPIRIN 81MG TABLET PO SCH (09:04)
[2021-10-06] MEDS: AMLODIPINE 5MG TABLET PO SCH (09:04)
[2021-10-06] MEDS: FERROUS SULFATE 325MG TABLET PO SCH ×2 (12:33→17:43)
[2021-10-06] MEDS: CLONIDINE 0.1MG TABLET PO PRN (12:35)
[2021-10-07] VITALS: BP 125/86
[2021-10-07 04:00] VITALS: BP 133/80
[2021-10-07 08:00] VITALS: BP 128/80
[2021-10-07] MEDS: FERROUS SULFATE 325MG TABLET PO SCH ×3 (09:30→17:39)
[2021-10-07] MEDS: AMMONIUM LACTATE 12% LOTION 240ML TOP SCH ×2 (09:30→17:39)
[2021-10-07] MEDS: MULTIVITAMINS,THER W-MINERALS TABLET PO SCH (09:30)
[2021-10-07] MEDS: APIXABAN 5 MG TABLET PO SCH ×2 (09:30→17:39)
[2021-10-07] MEDS: ASCORBIC ACID 500 MG TABLET PO SCH (09:31)
[2021-10-07] MEDS: ZINC SULFATE 220 MG ( 50 ) CAPSULE PO SCH (09:31)
[2021-10-07] MEDS: ASPIRIN 81MG TABLET PO SCH (09:31)
[2021-10-07] MEDS: FAMOTIDINE 20MG TABLET PO SCH ×2 (09:31→21:27)
[2021-10-07] MEDS: AMLODIPINE 5MG TABLET PO SCH (09:31)
[2021-10-07 12:00] VITALS: BP 126/93
[2021-10-07] MEDS: CLONIDINE 0.1MG TABLET PO PRN (13:20)
[2021-10-07 16:00] VITALS: BP 119/81
[2021-10-07 20:00] VITALS: BP 129/83
[2021-10-07] MEDS: SULFAMETHOXAZOLE/TRIMETHOPRIM 800/160MG TABLET PO SCH (21:27)
[2021-10-07 21:55] LABS: BASOPHILS % 0.8 % (0.0-2.0); EOSINOPHILS % 3.4 % (0.0-5.0); HEMATOCRIT. 36.2 % (42.0-52.0); HEMOGLOBIN. 11.8 g/dL (14.0-18.0); LYMPHOCYTES % 18.5 % (20.0-50.0); MEAN CORPUSCULAR HEMOGLOBIN 28.7 pg (28.0-32.0); MEAN CORPUSCULAR VOLUME 88.4 fL (80.0-94.0); MEAN PLATELET VOLUME 8.1 fl (7.4-10.4); MONOCYTES % 7.9 % (2.0-8.0); NEUTROPHILS % 69.4 % (40.0-76.0); PLATELET 275 x1000/uL (130-400); RED BLOOD CELL COUNT 4.09 mill/uL (4.7-6.1); RED CELL DISTRIBUTION WIDTH 16.4 % (11.6-14.6)
[2021-10-07 22:12] LABS: CHLORIDE 103 mEq/L (98-107)
[2021-10-08] VITALS: BP 146/85
[2021-10-08 04:00] VITALS: BP 120/76
[2021-10-08 08:00] VITALS: BP 135/88
[2021-10-08] MEDS: SULFAMETHOXAZOLE/TRIMETHOPRIM 800/160MG TABLET PO SCH ×2 (09:23→21:12)
[2021-10-08] MEDS: ASPIRIN 81MG TABLET PO SCH (09:23)
[2021-10-08] MEDS: MULTIVITAMINS,THER W-MINERALS TABLET PO SCH (09:23)
[2021-10-08] MEDS: ZINC SULFATE 220 MG ( 50 ) CAPSULE PO SCH (09:23)
[2021-10-08] MEDS: FERROUS SULFATE 325MG TABLET PO SCH ×3 (09:23→17:14)
[2021-10-08] MEDS: APIXABAN 5 MG TABLET PO SCH ×2 (09:23→16:17)
[2021-10-08] MEDS: AMLODIPINE 5MG TABLET PO SCH (09:24)
[2021-10-08] MEDS: FAMOTIDINE 20MG TABLET PO SCH ×2 (09:24→21:12)
[2021-10-08] MEDS: ASCORBIC ACID 500 MG TABLET PO SCH (09:24)
[2021-10-08] MEDS: AMMONIUM LACTATE 12% LOTION 240ML TOP SCH ×2 (09:25→16:18)
[2021-10-08 12:00] VITALS: BP 122/62
[2021-10-08 16:00] VITALS: BP 135/68
[2021-10-08 20:00] VITALS: BP 137/78
[2021-10-09 00:05] VITALS: BP 121/64
[2021-10-09 04:00] VITALS: BP 124/75
[2021-10-09 08:00] VITALS: BP 143/68
[2021-10-09] MEDS: AMMONIUM LACTATE 12% LOTION 240ML TOP SCH ×2 (09:00→17:28)
[2021-10-09] MEDS: SULFAMETHOXAZOLE/TRIMETHOPRIM 800/160MG TABLET PO SCH ×2 (10:37→21:24)
[2021-10-09] MEDS: FAMOTIDINE 20MG TABLET PO SCH ×2 (10:37→21:24)
[2021-10-09] MEDS: FERROUS SULFATE 325MG TABLET PO SCH ×3 (10:37→17:28)
[2021-10-09] MEDS: ASCORBIC ACID 500 MG TABLET PO SCH (10:37)
[2021-10-09] MEDS: ZINC SULFATE 220 MG ( 50 ) CAPSULE PO SCH (10:37)
[2021-10-09] MEDS: MULTIVITAMINS,THER W-MINERALS TABLET PO SCH (10:37)
[2021-10-09] MEDS: ASPIRIN 81MG TABLET PO SCH (10:37)
[2021-10-09] MEDS: APIXABAN 5 MG TABLET PO SCH ×2 (10:38→17:28)
[2021-10-09] MEDS: AMLODIPINE 5MG TABLET PO SCH (10:38)
[2021-10-09 12:00] VITALS: BP 151/86
[2021-10-09 16:00] VITALS: BP 136/82
[2021-10-09 20:00] VITALS: BP 148/86
[2021-10-10] VITALS: BP 122/72
[2021-10-10 04:00] VITALS: BP 145/90
[2021-10-10 08:00] VITALS: BP 116/75
[2021-10-10] MEDS: ZINC SULFATE 220 MG ( 50 ) CAPSULE PO SCH (09:03)
[2021-10-10] MEDS: FERROUS SULFATE 325MG TABLET PO SCH ×3 (09:03→18:08)
[2021-10-10] MEDS: AMLODIPINE 5MG TABLET PO SCH (09:03)
[2021-10-10] MEDS: ASPIRIN 81MG TABLET PO SCH (09:03)
[2021-10-10] MEDS: SULFAMETHOXAZOLE/TRIMETHOPRIM 800/160MG TABLET PO SCH ×2 (09:03→21:16)
[2021-10-10] MEDS: APIXABAN 5 MG TABLET PO SCH ×2 (09:03→18:08)
[2021-10-10] MEDS: MULTIVITAMINS,THER W-MINERALS TABLET PO SCH (09:04)
[2021-10-10] MEDS: FAMOTIDINE 20MG TABLET PO SCH ×2 (09:04→21:16)
[2021-10-10] MEDS: ASCORBIC ACID 500 MG TABLET PO SCH (09:04)
[2021-10-10 12:00] VITALS: BP 118/64
[2021-10-10] MEDS: AMMONIUM LACTATE 12% LOTION 240ML TOP SCH ×2 (12:56→18:10)
[2021-10-10 16:00] VITALS: BP 122/72
[2021-10-10 20:00] VITALS: BP 144/85
[2021-10-11] VITALS: BP 137/79
[2021-10-11 04:00] VITALS: BP 130/77
[2021-10-11 08:00] VITALS: BP 117/69
[2021-10-11] MEDS: FAMOTIDINE 20MG TABLET PO SCH ×2 (08:42→21:16)
[2021-10-11] MEDS: SULFAMETHOXAZOLE/TRIMETHOPRIM 800/160MG TABLET PO SCH ×2 (08:42→21:16)
[2021-10-11] MEDS: ASCORBIC ACID 500 MG TABLET PO SCH (08:42)
[2021-10-11] MEDS: APIXABAN 5 MG TABLET PO SCH ×2 (08:42→16:23)
[2021-10-11] MEDS: MULTIVITAMINS,THER W-MINERALS TABLET PO SCH (08:42)
[2021-10-11] MEDS: ASPIRIN 81MG TABLET PO SCH (08:42)
[2021-10-11] MEDS: FERROUS SULFATE 325MG TABLET PO SCH ×3 (08:42→18:13)
[2021-10-11] MEDS: AMLODIPINE 5MG TABLET PO SCH (08:42)
[2021-10-11] MEDS: ZINC SULFATE 220 MG ( 50 ) CAPSULE PO SCH (08:42)
[2021-10-11] MEDS: AMMONIUM LACTATE 12% LOTION 240ML TOP SCH ×2 (08:43→16:24)
[2021-10-11 12:00] VITALS: BP 137/86
[2021-10-11 13:07] LABS: 25-HYDROXY VITAMIN D3 2.9 ng/mL (.)
[2021-10-11 16:00] VITALS: BP 118/68
[2021-10-11] MEDS ORDERED: ERGOCALCIFEROL 50000UNITS CAPSULE PO SCH (16:00)
[2021-10-11 20:00] VITALS: BP 126/80
[2021-10-12] VITALS: BP 109/72
[2021-10-12 04:00] VITALS: BP 123/79
[2021-10-12 06:44] LABS: HEMATOCRIT 35.6 % (42.0-52.0); HEMOGLOBIN 11.8 g/dL (14.0-18.0); MEAN CORPUSCULAR HEMOGLOBIN 28.9 pg (28.0-32.0); MEAN CORPUSCULAR VOLUME 87.1 fL (80.0-94.0); PLATELET 334 x1000/uL (130-400); RED BLOOD CELL COUNT 4.08 mill/uL (4.7-6.1); RED CELL DISTRIBUTION WIDTH 15.7 % (11.6-14.6)
[2021-10-12 07:04] LABS: CHLORIDE 103 mEq/L (98-107)
[2021-10-12 08:00] VITALS: BP 124/84
[2021-10-12] MEDS: ZINC SULFATE 220 MG ( 50 ) CAPSULE PO SCH (09:43)
[2021-10-12] MEDS: APIXABAN 5 MG TABLET PO SCH ×2 (09:43→17:26)
[2021-10-12] MEDS: ASPIRIN 81MG TABLET PO SCH (09:43)
[2021-10-12] MEDS: FAMOTIDINE 20MG TABLET PO SCH ×2 (09:43→21:29)
[2021-10-12] MEDS: FERROUS SULFATE 325MG TABLET PO SCH ×3 (09:43→17:26)
[2021-10-12] MEDS: ASCORBIC ACID 500 MG TABLET PO SCH (09:43)
[2021-10-12] MEDS: SULFAMETHOXAZOLE/TRIMETHOPRIM 800/160MG TABLET PO SCH ×2 (09:43→21:29)
[2021-10-12] MEDS: AMLODIPINE 5MG TABLET PO SCH (09:43)
[2021-10-12] MEDS: MULTIVITAMINS,THER W-MINERALS TABLET PO SCH (09:43)
[2021-10-12] MEDS: AMMONIUM LACTATE 12% LOTION 240ML TOP SCH ×2 (09:44→17:26)
[2021-10-12 12:00] VITALS: BP 126/67
[2021-10-12 16:00] VITALS: BP 138/79
[2021-10-12 20:00] VITALS: BP 114/65
[2021-10-13] VITALS: BP 123/71
[2021-10-13 04:00] VITALS: BP 116/67
[2021-10-13 08:00] VITALS: BP 121/70
[2021-10-13] MEDS: AMLODIPINE 5MG TABLET PO SCH (09:17)
[2021-10-13] MEDS: ZINC SULFATE 220 MG ( 50 ) CAPSULE PO SCH (09:17)
[2021-10-13] MEDS: MULTIVITAMINS,THER W-MINERALS TABLET PO SCH (09:17)
[2021-10-13] MEDS: APIXABAN 5 MG TABLET PO SCH ×2 (09:17→17:26)
[2021-10-13] MEDS: FERROUS SULFATE 325MG TABLET PO SCH ×3 (09:17→17:26)
[2021-10-13] MEDS: FAMOTIDINE 20MG TABLET PO SCH ×2 (09:17→22:18)
[2021-10-13] MEDS: ASPIRIN 81MG TABLET PO SCH (09:18)
[2021-10-13] MEDS: ASCORBIC ACID 500 MG TABLET PO SCH (09:18)
[2021-10-13] MEDS: AMMONIUM LACTATE 12% LOTION 240ML TOP SCH ×2 (09:20→17:27)
[2021-10-13 12:00] VITALS: BP 118/65
[2021-10-13 16:00] VITALS: BP 125/71
[2021-10-13 20:00] VITALS: BP 129/79
[2021-10-14] VITALS: BP 127/77
[2021-10-14 04:00] VITALS: BP 121/69
[2021-10-14 08:00] VITALS: BP 143/81
[2021-10-14] MEDS: AMLODIPINE 5MG TABLET PO SCH (09:12)
[2021-10-14] MEDS: MULTIVITAMINS,THER W-MINERALS TABLET PO SCH (09:12)
[2021-10-14] MEDS: APIXABAN 5 MG TABLET PO SCH ×2 (09:12→17:52)
[2021-10-14] MEDS: FERROUS SULFATE 325MG TABLET PO SCH ×3 (09:12→17:52)
[2021-10-14] MEDS: ZINC SULFATE 220 MG ( 50 ) CAPSULE PO SCH (09:12)
[2021-10-14] MEDS: ASCORBIC ACID 500 MG TABLET PO SCH (09:12)
[2021-10-14] MEDS: ASPIRIN 81MG TABLET PO SCH (09:12)
[2021-10-14] MEDS: FAMOTIDINE 20MG TABLET PO SCH ×2 (09:12→21:36)
[2021-10-14] MEDS: AMMONIUM LACTATE 12% LOTION 240ML TOP SCH ×2 (09:15→17:53)
[2021-10-14 12:01] VITALS: BP 129/83
[2021-10-14 16:00] VITALS: BP 147/83
[2021-10-14 20:00] VITALS: BP 132/76
[2021-10-15] VITALS: BP 127/73
[2021-10-15 04:00] VITALS: BP 122/76
[2021-10-15 08:00] VITALS: BP 129/70
[2021-10-15] MEDS: ASPIRIN 81MG TABLET PO SCH (09:38)
[2021-10-15] MEDS: ZINC SULFATE 220 MG ( 50 ) CAPSULE PO SCH (09:38)
[2021-10-15] MEDS: APIXABAN 5 MG TABLET PO SCH ×2 (09:38→17:41)
[2021-10-15] MEDS: MULTIVITAMINS,THER W-MINERALS TABLET PO SCH (09:38)
[2021-10-15] MEDS: FAMOTIDINE 20MG TABLET PO SCH ×2 (09:38→21:12)
[2021-10-15] MEDS: AMLODIPINE 5MG TABLET PO SCH (09:39)
[2021-10-15] MEDS: FERROUS SULFATE 325MG TABLET PO SCH ×3 (09:39→17:41)
[2021-10-15] MEDS: ASCORBIC ACID 500 MG TABLET PO SCH (09:39)
[2021-10-15] MEDS: AMMONIUM LACTATE 12% LOTION 240ML TOP SCH ×2 (09:40→17:42)
[2021-10-15 12:00] VITALS: BP 135/60
[2021-10-15 15:42] VITALS: BP 145/80
[2021-10-15 20:00] VITALS: BP 117/71
[2021-10-16] VITALS: BP 118/74
[2021-10-16 08:00] VITALS: BP 113/79
[2021-10-16] MEDS: AMLODIPINE 5MG TABLET PO SCH (09:05)
[2021-10-16] MEDS: MULTIVITAMINS,THER W-MINERALS TABLET PO SCH (09:05)
[2021-10-16] MEDS: ASPIRIN 81MG TABLET PO SCH (09:05)
[2021-10-16] MEDS: FERROUS SULFATE 325MG TABLET PO SCH ×3 (09:05→18:01)
[2021-10-16] MEDS: ASCORBIC ACID 500 MG TABLET PO SCH (09:05)
[2021-10-16] MEDS: ZINC SULFATE 220 MG ( 50 ) CAPSULE PO SCH (09:05)
[2021-10-16] MEDS: FAMOTIDINE 20MG TABLET PO SCH ×2 (09:05→22:36)
[2021-10-16] MEDS: APIXABAN 5 MG TABLET PO SCH ×2 (09:05→18:01)
[2021-10-16] MEDS: AMMONIUM LACTATE 12% LOTION 240ML TOP SCH ×2 (09:09→18:01)
[2021-10-16 11:55] VITALS: BP 117/77
[2021-10-16 16:00] VITALS: BP 120/68
[2021-10-16 20:00] VITALS: BP 130/89
[2021-10-17] VITALS (7 sets, daily range): BP systolic 118–138; BP diastolic 72–86
[2021-10-17] MEDS: APIXABAN 5 MG TABLET PO SCH ×2 (08:21→16:13)
[2021-10-17] MEDS: MULTIVITAMINS,THER W-MINERALS TABLET PO SCH (08:21)
[2021-10-17] MEDS: AMLODIPINE 5MG TABLET PO SCH (08:21)
[2021-10-17] MEDS: AMMONIUM LACTATE 12% LOTION 240ML TOP SCH ×2 (08:21→16:13)
[2021-10-17] MEDS: ZINC SULFATE 220 MG ( 50 ) CAPSULE PO SCH (08:21)
[2021-10-17] MEDS: FERROUS SULFATE 325MG TABLET PO SCH ×3 (08:21→16:13)
[2021-10-17] MEDS: ASPIRIN 81MG TABLET PO SCH (08:21)
[2021-10-17] MEDS: ASCORBIC ACID 500 MG TABLET PO SCH (08:21)
[2021-10-17] MEDS: FAMOTIDINE 20MG TABLET PO SCH (08:23)
== END 2021-10-17 21:10 | DRG 871 ==
LOC: ER 14:54 → 7EST 19:02 → EDBEDREQ 19:12 → EDBEDREQSVC 19:12 → ENRESERV 22:41 → 7WST 09-28 14:52
PROVIDERS: ADMIT Internal Medicine; ATTEND Internal Medicine
DX: A41.9 Sepsis, unspecified organism (principal); E43 Unspecified severe protein-calorie malnutrition; G82.20 Paraplegia, unspecified; M62.82 Rhabdomyolysis; I82.409 Acute embolism and thrombosis of unspecified deep veins of unspecified lower extremity; Z68.42 Body mass index [BMI] 45.0-49.9, adult; N39.0 Urinary tract infection, site not specified; L89.90 Pressure ulcer of unspecified site, unspecified stage; D64.9 Anemia, unspecified; E66.01 Morbid (severe) obesity due to excess calories; I11.0 Hypertensive heart disease with heart failure; I50.9 Heart failure, unspecified; E86.0 Dehydration; E53.8 Deficiency of other specified B group vitamins; F15.90 Other stimulant use, unspecified, uncomplicated; M17.0 Bilateral primary osteoarthritis of knee; M25.40 Effusion, unspecified joint; R20.0 Anesthesia of skin; R29.6 Repeated falls; E55.9 Vitamin D deficiency, unspecified; E61.1 Iron deficiency; Z86.718 Personal history of other venous thrombosis and embolism; Z87.440 Personal history of urinary (tract) infections; Z91.013 Allergy to seafood; Z79.899 Other long term (current) drug therapy; Z79.84 Long term (current) use of oral hypoglycemic drugs
CPT/HCPCS: 36415; 72192; 73700; 80048; 80053; 80305; 80320; 81003; 82306; 82550; 82607; 82728; 82746; 83540; 83550; 84484; 85025; 85027; 87070; 87077; 87186; 93005; 97110; 97116; 97162; 97166; 97530; 97535; 99291; J2405; J7030; G0480

== ENCOUNTER 2021-10-17 21:51 | Inpatient (IN) | payer OTHER ==
[~2021-10-17] VITALS: Ht 182.9 cm; Wt 170.6 kg
[2021-10-17 21:10] VITALS: BP 133/86
[2021-10-17 23:00] VITALS: BP 133/86
[2021-10-17] MEDS ORDERED: ONDANSETRON HCL 4MG/2ML INJ IV PRN (23:00)
[2021-10-17] MEDS ORDERED: CLONIDINE 0.1MG TABLET PO PRN (23:00)
[2021-10-18 06:37] LABS: BASOPHILS % 0.4 % (0.0-2.0); EOSINOPHILS % 4.8 % (0.0-5.0); HEMATOCRIT. 33.9 % (42.0-52.0); HEMOGLOBIN. 11.1 g/dL (14.0-18.0); LYMPHOCYTES % 19.2 % (20.0-50.0); MEAN CORPUSCULAR HEMOGLOBIN 28.8 pg (28.0-32.0); MEAN CORPUSCULAR VOLUME 87.7 fL (80.0-94.0); MEAN PLATELET VOLUME 7.6 fl (7.4-10.4); MONOCYTES % 7.1 % (2.0-8.0); NEUTROPHILS % 68.5 % (40.0-76.0); PLATELET 346 x1000/uL (130-400); RED BLOOD CELL COUNT 3.86 mill/uL (4.7-6.1); RED CELL DISTRIBUTION WIDTH 15.7 % (11.6-14.6)
[2021-10-18 06:50] LABS: CHLORIDE 106 mEq/L (98-107)
[2021-10-18 07:56] VITALS: BP 125/86
[2021-10-18] MEDS: AMMONIUM LACTATE 12% LOTION 240ML TOP SCH ×2 (09:00→17:00)
[2021-10-18] MEDS: ASPIRIN 81MG TABLET PO SCH (10:03)
[2021-10-18] MEDS: FAMOTIDINE 20MG TABLET PO SCH ×2 (10:04→20:20)
[2021-10-18] MEDS: ZINC SULFATE 220 MG ( 50 ) CAPSULE PO SCH (10:04)
[2021-10-18] MEDS: ASCORBIC ACID 500 MG TABLET PO SCH (10:04)
[2021-10-18] MEDS: FERROUS SULFATE 325MG TABLET PO SCH ×3 (10:04→18:35)
[2021-10-18] MEDS: APIXABAN 5 MG TABLET PO SCH ×2 (10:04→18:34)
[2021-10-18] MEDS: MULTIVITAMINS,THER W-MINERALS TABLET PO SCH (10:04)
[2021-10-18] MEDS: ERGOCALCIFEROL 50000UNITS CAPSULE PO SCH (10:04)
[2021-10-18] MEDS: AMLODIPINE 5MG TABLET PO SCH (10:06)
[2021-10-18 20:00] VITALS: BP 118/72
[2021-10-19 08:00] VITALS: BP 119/77
[2021-10-19] MEDS: ASPIRIN 81MG TABLET PO SCH (09:01)
[2021-10-19] MEDS: FERROUS SULFATE 325MG TABLET PO SCH ×3 (09:02→17:25)
[2021-10-19] MEDS: ASCORBIC ACID 500 MG TABLET PO SCH (09:03)
[2021-10-19] MEDS: APIXABAN 5 MG TABLET PO SCH ×2 (09:03→17:25)
[2021-10-19] MEDS: MULTIVITAMINS,THER W-MINERALS TABLET PO SCH (09:03)
[2021-10-19] MEDS: FAMOTIDINE 20MG TABLET PO SCH ×2 (09:03→20:47)
[2021-10-19] MEDS: AMLODIPINE 5MG TABLET PO SCH (09:03)
[2021-10-19] MEDS: ZINC SULFATE 220 MG ( 50 ) CAPSULE PO SCH (09:03)
[2021-10-19] MEDS: AMMONIUM LACTATE 12% LOTION 240ML TOP SCH ×2 (09:08→17:25)
[2021-10-19 12:00] VITALS: BP 124/79
[2021-10-19 16:00] VITALS: BP 122/78
[2021-10-19 20:00] VITALS: BP 120/75
[2021-10-20 08:00] VITALS: BP 125/103
[2021-10-20] MEDS: MULTIVITAMINS,THER W-MINERALS TABLET PO SCH (09:25)
[2021-10-20] MEDS: ASPIRIN 81MG TABLET PO SCH (09:25)
[2021-10-20] MEDS: APIXABAN 5 MG TABLET PO SCH ×2 (09:26→18:04)
[2021-10-20] MEDS: ASCORBIC ACID 500 MG TABLET PO SCH (09:26)
[2021-10-20] MEDS: ZINC SULFATE 220 MG ( 50 ) CAPSULE PO SCH (09:26)
[2021-10-20] MEDS: FERROUS SULFATE 325MG TABLET PO SCH ×3 (09:26→18:04)
[2021-10-20] MEDS: FAMOTIDINE 20MG TABLET PO SCH ×2 (09:26→20:08)
[2021-10-20] MEDS: AMMONIUM LACTATE 12% LOTION 240ML TOP SCH ×2 (09:27→17:00)
[2021-10-20] MEDS: AMLODIPINE 5MG TABLET PO SCH (09:27)
[2021-10-20 12:00] VITALS: BP 130/72
[2021-10-20] MEDS: LACTULOSE 20G/30ML UDC PO SCH ×4 (12:44→20:08)
[2021-10-20 16:00] VITALS: BP 135/72
[2021-10-20] MEDS: DOCUSATE SODIUM 100MG CAPSULE PO SCH (18:04)
[2021-10-20 20:00] VITALS: BP 104/69
[2021-10-21 08:20] VITALS: BP 143/96
[2021-10-21] MEDS: POLYETHYLENE GLYCOL 3350 (17GM) 1 DOSE PACK PO SCH (09:08)
[2021-10-21] MEDS: APIXABAN 5 MG TABLET PO SCH ×2 (09:09→16:30)
[2021-10-21] MEDS: DOCUSATE SODIUM 100MG CAPSULE PO SCH ×2 (09:09→16:30)
[2021-10-21] MEDS: ZINC SULFATE 220 MG ( 50 ) CAPSULE PO SCH (09:09)
[2021-10-21] MEDS: ASPIRIN 81MG TABLET PO SCH (09:09)
[2021-10-21] MEDS: MULTIVITAMINS,THER W-MINERALS TABLET PO SCH (09:09)
[2021-10-21] MEDS: LACTULOSE 20G/30ML UDC PO SCH ×2 (09:09→12:05)
[2021-10-21] MEDS: AMLODIPINE 5MG TABLET PO SCH (09:09)
[2021-10-21] MEDS: FERROUS SULFATE 325MG TABLET PO SCH ×3 (09:09→16:30)
[2021-10-21] MEDS: FAMOTIDINE 20MG TABLET PO SCH ×2 (09:09→21:11)
[2021-10-21] MEDS: ASCORBIC ACID 500 MG TABLET PO SCH (09:09)
[2021-10-21] MEDS: AMMONIUM LACTATE 12% LOTION 240ML TOP SCH ×2 (09:10→16:30)
[2021-10-21 20:00] VITALS: BP 109/67
[2021-10-22 07:50] VITALS: BP 125/92
[2021-10-22] MEDS: ASCORBIC ACID 500 MG TABLET PO SCH (08:28)
[2021-10-22] MEDS: ZINC SULFATE 220 MG ( 50 ) CAPSULE PO SCH (08:28)
[2021-10-22] MEDS: ASPIRIN 81MG TABLET PO SCH (08:28)
[2021-10-22] MEDS: APIXABAN 5 MG TABLET PO SCH ×2 (08:28→17:01)
[2021-10-22] MEDS: AMLODIPINE 5MG TABLET PO SCH (08:28)
[2021-10-22] MEDS: DOCUSATE SODIUM 100MG CAPSULE PO SCH ×2 (08:28→17:01)
[2021-10-22] MEDS: MULTIVITAMINS,THER W-MINERALS TABLET PO SCH (08:28)
[2021-10-22] MEDS: POLYETHYLENE GLYCOL 3350 (17GM) 1 DOSE PACK PO SCH (08:28)
[2021-10-22] MEDS: FERROUS SULFATE 325MG TABLET PO SCH ×3 (08:28→17:01)
[2021-10-22] MEDS: FAMOTIDINE 20MG TABLET PO SCH ×2 (08:28→21:23)
[2021-10-22] MEDS: AMMONIUM LACTATE 12% LOTION 240ML TOP SCH ×2 (08:32→17:02)
[2021-10-22 20:00] VITALS: BP 127/77
[2021-10-23 06:03] LABS: CHLORIDE 107 mEq/L (98-107)
[2021-10-23 06:20] LABS: BASOPHILS % 0.6 % (0.0-2.0); HEMATOCRIT. 32.8 % (42.0-52.0); HEMOGLOBIN. 10.8 g/dL (14.0-18.0); MEAN CORPUSCULAR HEMOGLOBIN 28.6 pg (28.0-32.0); MEAN PLATELET VOLUME 7.7 fl (7.4-10.4); MONOCYTES % 7.3 % (2.0-8.0); NEUTROPHILS % 65.1 % (40.0-76.0); PLATELET 299 x1000/uL (130-400); RED BLOOD CELL COUNT 3.78 mill/uL (4.7-6.1); RED CELL DISTRIBUTION WIDTH 15.7 % (11.6-14.6)
[2021-10-23 08:00] VITALS: BP 130/86
[2021-10-23] MEDS: ASPIRIN 81MG TABLET PO SCH (08:52)
[2021-10-23] MEDS: APIXABAN 5 MG TABLET PO SCH ×2 (08:53→18:18)
[2021-10-23] MEDS: ASCORBIC ACID 500 MG TABLET PO SCH (08:53)
[2021-10-23] MEDS: FAMOTIDINE 20MG TABLET PO SCH ×2 (08:53→21:03)
[2021-10-23] MEDS: FERROUS SULFATE 325MG TABLET PO SCH ×3 (08:53→18:18)
[2021-10-23] MEDS: ZINC SULFATE 220 MG ( 50 ) CAPSULE PO SCH (08:53)
[2021-10-23] MEDS: DOCUSATE SODIUM 100MG CAPSULE PO SCH ×2 (08:53→18:18)
[2021-10-23] MEDS: AMMONIUM LACTATE 12% LOTION 240ML TOP SCH ×2 (08:54→17:00)
[2021-10-23] MEDS: AMLODIPINE 5MG TABLET PO SCH (08:54)
[2021-10-23] MEDS: POLYETHYLENE GLYCOL 3350 (17GM) 1 DOSE PACK PO SCH (08:54)
[2021-10-23] MEDS: MULTIVITAMINS,THER W-MINERALS TABLET PO SCH (08:54)
[2021-10-23 20:00] VITALS: BP 128/81
[2021-10-24 08:00] VITALS: BP 143/88
[2021-10-24] MEDS: MULTIVITAMINS,THER W-MINERALS TABLET PO SCH (09:00)
[2021-10-24] MEDS: POLYETHYLENE GLYCOL 3350 (17GM) 1 DOSE PACK PO SCH (09:00)
[2021-10-24] MEDS: ASPIRIN 81MG TABLET PO SCH (09:24)
[2021-10-24] MEDS: FERROUS SULFATE 325MG TABLET PO SCH ×3 (09:24→17:43)
[2021-10-24] MEDS: ASCORBIC ACID 500 MG TABLET PO SCH (09:24)
[2021-10-24] MEDS: FAMOTIDINE 20MG TABLET PO SCH ×2 (09:24→20:04)
[2021-10-24] MEDS: ZINC SULFATE 220 MG ( 50 ) CAPSULE PO SCH (09:24)
[2021-10-24] MEDS: APIXABAN 5 MG TABLET PO SCH ×2 (09:24→17:43)
[2021-10-24] MEDS: DOCUSATE SODIUM 100MG CAPSULE PO SCH ×2 (09:24→17:43)
[2021-10-24] MEDS: AMLODIPINE 5MG TABLET PO SCH (09:25)
[2021-10-24] MEDS: AMMONIUM LACTATE 12% LOTION 240ML TOP SCH ×2 (09:25→17:44)
[2021-10-24 20:00] VITALS: BP 127/77
[2021-10-25 07:59] VITALS: BP 132/84
[2021-10-25] MEDS: AMLODIPINE 5MG TABLET PO SCH ×2 (09:00→09:36)
[2021-10-25] MEDS: POLYETHYLENE GLYCOL 3350 (17GM) 1 DOSE PACK PO SCH (09:32)
[2021-10-25] MEDS: DOCUSATE SODIUM 100MG CAPSULE PO SCH ×2 (09:32→17:00)
[2021-10-25] MEDS: ZINC SULFATE 220 MG ( 50 ) CAPSULE PO SCH (09:33)
[2021-10-25] MEDS: FAMOTIDINE 20MG TABLET PO SCH ×2 (09:33→20:25)
[2021-10-25] MEDS: ASCORBIC ACID 500 MG TABLET PO SCH (09:33)
[2021-10-25] MEDS: MULTIVITAMINS,THER W-MINERALS TABLET PO SCH (09:33)
[2021-10-25] MEDS: ERGOCALCIFEROL 50000UNITS CAPSULE PO SCH (09:33)
[2021-10-25] MEDS: APIXABAN 5 MG TABLET PO SCH ×2 (09:33→18:12)
[2021-10-25] MEDS: ASPIRIN 81MG TABLET PO SCH (09:33)
[2021-10-25] MEDS: FERROUS SULFATE 325MG TABLET PO SCH ×3 (09:33→18:12)
[2021-10-25] MEDS: AMMONIUM LACTATE 12% LOTION 240ML TOP SCH ×2 (09:37→18:13)
[2021-10-25] MEDS ORDERED: NALOXONE HCL 0.4MG/ML VIAL IV PRN (13:00)
[2021-10-25] MEDS: HYDROCODONE/ACETAMINOPHEN 5/325MG TABLET PO PRN ×2 (13:31→18:13)
[2021-10-25 20:30] VITALS: BP 136/90
[2021-10-26 07:45] VITALS: BP 144/95
[2021-10-26 07:46] VITALS: BP 144/95
[2021-10-26] MEDS: FERROUS SULFATE 325MG TABLET PO SCH ×3 (08:38→16:11)
[2021-10-26] MEDS: FAMOTIDINE 20MG TABLET PO SCH ×2 (08:38→21:57)
[2021-10-26] MEDS: POLYETHYLENE GLYCOL 3350 (17GM) 1 DOSE PACK PO SCH (08:38)
[2021-10-26] MEDS: DOCUSATE SODIUM 100MG CAPSULE PO SCH ×2 (08:38→16:11)
[2021-10-26] MEDS: ASPIRIN 81MG TABLET PO SCH (08:38)
[2021-10-26] MEDS: ZINC SULFATE 220 MG ( 50 ) CAPSULE PO SCH (08:39)
[2021-10-26] MEDS: MULTIVITAMINS,THER W-MINERALS TABLET PO SCH (08:39)
[2021-10-26] MEDS: APIXABAN 5 MG TABLET PO SCH ×2 (08:39→16:11)
[2021-10-26] MEDS: AMLODIPINE 5MG TABLET PO SCH (08:39)
[2021-10-26] MEDS: ASCORBIC ACID 500 MG TABLET PO SCH (08:39)
[2021-10-26] MEDS: AMMONIUM LACTATE 12% LOTION 240ML TOP SCH ×2 (08:40→16:11)
[2021-10-26] MEDS: HYDROCODONE/ACETAMINOPHEN 5/325MG TABLET PO PRN (08:46)
[2021-10-26 20:00] VITALS: BP 129/90
[2021-10-27 08:00] VITALS: BP 139/78
[2021-10-27] MEDS: ZINC SULFATE 220 MG ( 50 ) CAPSULE PO SCH (08:36)
[2021-10-27] MEDS: FERROUS SULFATE 325MG TABLET PO SCH ×3 (08:36→16:54)
[2021-10-27] MEDS: DOCUSATE SODIUM 100MG CAPSULE PO SCH ×2 (08:36→16:55)
[2021-10-27] MEDS: ASPIRIN 81MG TABLET PO SCH (08:36)
[2021-10-27] MEDS: APIXABAN 5 MG TABLET PO SCH ×2 (08:36→16:54)
[2021-10-27] MEDS: POLYETHYLENE GLYCOL 3350 (17GM) 1 DOSE PACK PO SCH (08:36)
[2021-10-27] MEDS: MULTIVITAMINS,THER W-MINERALS TABLET PO SCH (08:36)
[2021-10-27] MEDS: FAMOTIDINE 20MG TABLET PO SCH ×2 (08:36→21:15)
[2021-10-27] MEDS: AMMONIUM LACTATE 12% LOTION 240ML TOP SCH ×2 (08:37→16:55)
[2021-10-27] MEDS: ASCORBIC ACID 500 MG TABLET PO SCH (08:37)
[2021-10-27] MEDS: AMLODIPINE 5MG TABLET PO SCH (08:37)
[2021-10-27 20:00] VITALS: BP 136/85
[2021-10-28 08:00] VITALS: BP 142/95
[2021-10-28] MEDS: AMMONIUM LACTATE 12% LOTION 240ML TOP SCH ×2 (09:00→17:00)
[2021-10-28] MEDS: DOCUSATE SODIUM 100MG CAPSULE PO SCH ×2 (09:28→18:16)
[2021-10-28] MEDS: MULTIVITAMINS,THER W-MINERALS TABLET PO SCH (09:28)
[2021-10-28] MEDS: ASPIRIN 81MG TABLET PO SCH (09:28)
[2021-10-28] MEDS: ZINC SULFATE 220 MG ( 50 ) CAPSULE PO SCH (09:28)
[2021-10-28] MEDS: POLYETHYLENE GLYCOL 3350 (17GM) 1 DOSE PACK PO SCH (09:28)
[2021-10-28] MEDS: ASCORBIC ACID 500 MG TABLET PO SCH (09:28)
[2021-10-28] MEDS: FAMOTIDINE 20MG TABLET PO SCH ×2 (09:29→21:30)
[2021-10-28] MEDS: APIXABAN 5 MG TABLET PO SCH ×2 (09:29→18:16)
[2021-10-28] MEDS: AMLODIPINE 5MG TABLET PO SCH (09:29)
[2021-10-28] MEDS: FERROUS SULFATE 325MG TABLET PO SCH ×3 (09:29→18:16)
[2021-10-28 20:00] VITALS: BP 128/79
[2021-10-29 05:29] LABS: BASOPHILS % 0.6 % (0.0-2.0); HEMATOCRIT. 32.9 % (42.0-52.0); HEMOGLOBIN. 10.8 g/dL (14.0-18.0); LYMPHOCYTES % 23.4 % (20.0-50.0); MEAN CORPUSCULAR HEMOGLOBIN 28.6 pg (28.0-32.0); MEAN CORPUSCULAR VOLUME 87.4 fL (80.0-94.0); MEAN PLATELET VOLUME 7.6 fl (7.4-10.4); MONOCYTES % 7.8 % (2.0-8.0); NEUTROPHILS % 65.2 % (40.0-76.0); PLATELET 278 x1000/uL (130-400); RED BLOOD CELL COUNT 3.77 mill/uL (4.7-6.1); RED CELL DISTRIBUTION WIDTH 15.4 % (11.6-14.6)
[2021-10-29 06:30] LABS: CHLORIDE 104 mEq/L (98-107)
[2021-10-29 08:00] VITALS: BP 133/87
[2021-10-29] MEDS: POLYETHYLENE GLYCOL 3350 (17GM) 1 DOSE PACK PO SCH (09:00)
[2021-10-29] MEDS: ZINC SULFATE 220 MG ( 50 ) CAPSULE PO SCH (09:25)
[2021-10-29] MEDS: FERROUS SULFATE 325MG TABLET PO SCH ×3 (09:25→16:55)
[2021-10-29] MEDS: APIXABAN 5 MG TABLET PO SCH ×2 (09:25→16:55)
[2021-10-29] MEDS: FAMOTIDINE 20MG TABLET PO SCH ×2 (09:25→21:06)
[2021-10-29] MEDS: MULTIVITAMINS,THER W-MINERALS TABLET PO SCH (09:25)
[2021-10-29] MEDS: ASCORBIC ACID 500 MG TABLET PO SCH (09:25)
[2021-10-29] MEDS: DOCUSATE SODIUM 100MG CAPSULE PO SCH ×2 (09:25→16:55)
[2021-10-29] MEDS: ASPIRIN 81MG TABLET PO SCH (09:26)
[2021-10-29] MEDS: AMLODIPINE 5MG TABLET PO SCH (09:26)
[2021-10-29] MEDS: HYDROCODONE/ACETAMINOPHEN 5/325MG TABLET PO PRN (09:27)
[2021-10-29] MEDS: AMMONIUM LACTATE 12% LOTION 240ML TOP SCH ×2 (09:31→16:46)
[2021-10-29 20:00] VITALS: BP 143/84
[2021-10-30 08:00] VITALS: BP 141/85
[2021-10-30] MEDS: AMMONIUM LACTATE 12% LOTION 240ML TOP SCH ×2 (09:00→17:00)
[2021-10-30] MEDS: DOCUSATE SODIUM 100MG CAPSULE PO SCH ×2 (09:34→17:07)
[2021-10-30] MEDS: POLYETHYLENE GLYCOL 3350 (17GM) 1 DOSE PACK PO SCH (09:35)
[2021-10-30] MEDS: FERROUS SULFATE 325MG TABLET PO SCH ×3 (09:35→17:07)
[2021-10-30] MEDS: APIXABAN 5 MG TABLET PO SCH ×2 (09:35→17:07)
[2021-10-30] MEDS: ZINC SULFATE 220 MG ( 50 ) CAPSULE PO SCH (09:35)
[2021-10-30] MEDS: ASCORBIC ACID 500 MG TABLET PO SCH (09:35)
[2021-10-30] MEDS: ASPIRIN 81MG TABLET PO SCH (09:35)
[2021-10-30] MEDS: FAMOTIDINE 20MG TABLET PO SCH ×2 (09:35→20:50)
[2021-10-30] MEDS: MULTIVITAMINS,THER W-MINERALS TABLET PO SCH (09:35)
[2021-10-30] MEDS: AMLODIPINE 5MG TABLET PO SCH (09:35)
[2021-10-30 20:00] VITALS: BP 140/84
[2021-10-31 08:00] VITALS: BP 133/88
[2021-10-31] MEDS: ASCORBIC ACID 500 MG TABLET PO SCH (08:35)
[2021-10-31] MEDS: APIXABAN 5 MG TABLET PO SCH ×2 (08:35→16:44)
[2021-10-31] MEDS: FAMOTIDINE 20MG TABLET PO SCH ×2 (08:36→20:25)
[2021-10-31] MEDS: ZINC SULFATE 220 MG ( 50 ) CAPSULE PO SCH (08:36)
[2021-10-31] MEDS: FERROUS SULFATE 325MG TABLET PO SCH ×3 (08:36→16:44)
[2021-10-31] MEDS: MULTIVITAMINS,THER W-MINERALS TABLET PO SCH (08:36)
[2021-10-31] MEDS: AMLODIPINE 5MG TABLET PO SCH (08:36)
[2021-10-31] MEDS: ASPIRIN 81MG TABLET PO SCH (08:36)
[2021-10-31] MEDS: AMMONIUM LACTATE 12% LOTION 240ML TOP SCH ×2 (08:37→16:44)
[2021-10-31] MEDS: DOCUSATE SODIUM 100MG CAPSULE PO SCH ×2 (08:40→16:44)
[2021-10-31] MEDS: POLYETHYLENE GLYCOL 3350 (17GM) 1 DOSE PACK PO SCH (08:40)
[2021-10-31 20:00] VITALS: BP 133/94
[2021-11-01] MEDS: AMMONIUM LACTATE 12% LOTION 240ML TOP SCH ×2 (09:00→17:00)
[2021-11-01 09:03] VITALS: BP 106/76
[2021-11-01] MEDS: ERGOCALCIFEROL 50000UNITS CAPSULE PO SCH (09:05)
[2021-11-01] MEDS: APIXABAN 5 MG TABLET PO SCH ×2 (09:05→17:28)
[2021-11-01] MEDS: POLYETHYLENE GLYCOL 3350 (17GM) 1 DOSE PACK PO SCH (09:05)
[2021-11-01] MEDS: FERROUS SULFATE 325MG TABLET PO SCH ×3 (09:05→17:28)
[2021-11-01] MEDS: DOCUSATE SODIUM 100MG CAPSULE PO SCH ×2 (09:05→17:28)
[2021-11-01] MEDS: MULTIVITAMINS,THER W-MINERALS TABLET PO SCH (09:05)
[2021-11-01] MEDS: FAMOTIDINE 20MG TABLET PO SCH ×2 (09:05→20:18)
[2021-11-01] MEDS: ZINC SULFATE 220 MG ( 50 ) CAPSULE PO SCH (09:06)
[2021-11-01] MEDS: AMLODIPINE 5MG TABLET PO SCH (09:06)
[2021-11-01] MEDS: ASCORBIC ACID 500 MG TABLET PO SCH (09:06)
[2021-11-01] MEDS: ASPIRIN 81MG TABLET PO SCH (09:06)
[2021-11-01] MEDS: ACETAMINOPHEN 325MG TABLET PO PRN (14:06)
[2021-11-01 20:00] VITALS: BP 143/88
[2021-11-02 08:00] VITALS: BP 136/89
[2021-11-02] MEDS: POLYETHYLENE GLYCOL 3350 (17GM) 1 DOSE PACK PO SCH (09:00)
[2021-11-02] MEDS: FAMOTIDINE 20MG TABLET PO SCH ×2 (09:22→21:25)
[2021-11-02] MEDS: ASPIRIN 81MG TABLET PO SCH (09:22)
[2021-11-02] MEDS: ZINC SULFATE 220 MG ( 50 ) CAPSULE PO SCH (09:22)
[2021-11-02] MEDS: DOCUSATE SODIUM 100MG CAPSULE PO SCH ×2 (09:22→17:00)
[2021-11-02] MEDS: APIXABAN 5 MG TABLET PO SCH ×2 (09:22→17:35)
[2021-11-02] MEDS: ASCORBIC ACID 500 MG TABLET PO SCH (09:22)
[2021-11-02] MEDS: FERROUS SULFATE 325MG TABLET PO SCH ×3 (09:22→17:35)
[2021-11-02] MEDS: MULTIVITAMINS,THER W-MINERALS TABLET PO SCH (09:22)
[2021-11-02] MEDS: AMLODIPINE 5MG TABLET PO SCH (09:23)
[2021-11-02] MEDS: AMMONIUM LACTATE 12% LOTION 240ML TOP SCH ×2 (09:24→17:35)
[2021-11-02] MEDS: ACETAMINOPHEN 325MG TABLET PO PRN (09:31)
[2021-11-02 20:00] VITALS: BP 107/52
[2021-11-03 06:23] LABS: BASOPHILS % 0.2 % (0.0-2.0); EOSINOPHILS % 3.8 % (0.0-5.0); HEMATOCRIT. 33.2 % (42.0-52.0); HEMOGLOBIN. 10.9 g/dL (14.0-18.0); LYMPHOCYTES % 20.9 % (20.0-50.0); MEAN CORPUSCULAR HEMOGLOBIN 28.9 pg (28.0-32.0); MEAN CORPUSCULAR VOLUME 87.9 fL (80.0-94.0); MEAN PLATELET VOLUME 7.9 fl (7.4-10.4); MONOCYTES % 7.9 % (2.0-8.0); NEUTROPHILS % 67.2 % (40.0-76.0); PLATELET 249 x1000/uL (130-400); RED BLOOD CELL COUNT 3.77 mill/uL (4.7-6.1); RED CELL DISTRIBUTION WIDTH 15.9 % (11.6-14.6)
[2021-11-03 07:13] LABS: CHLORIDE 106 mEq/L (98-107)
[2021-11-03 08:00] VITALS: BP 130/81
[2021-11-03] MEDS: APIXABAN 5 MG TABLET PO SCH ×2 (08:16→16:50)
[2021-11-03] MEDS: FERROUS SULFATE 325MG TABLET PO SCH ×3 (08:16→16:50)
[2021-11-03] MEDS: FAMOTIDINE 20MG TABLET PO SCH ×2 (08:16→21:54)
[2021-11-03] MEDS: ASCORBIC ACID 500 MG TABLET PO SCH (08:16)
[2021-11-03] MEDS: MULTIVITAMINS,THER W-MINERALS TABLET PO SCH (08:16)
[2021-11-03] MEDS: AMMONIUM LACTATE 12% LOTION 240ML TOP SCH ×2 (08:16→16:51)
[2021-11-03] MEDS: DOCUSATE SODIUM 100MG CAPSULE PO SCH ×2 (08:16→16:50)
[2021-11-03] MEDS: ZINC SULFATE 220 MG ( 50 ) CAPSULE PO SCH (08:16)
[2021-11-03] MEDS: POLYETHYLENE GLYCOL 3350 (17GM) 1 DOSE PACK PO SCH (08:17)
[2021-11-03] MEDS: ASPIRIN 81MG TABLET PO SCH (08:17)
[2021-11-03] MEDS: AMLODIPINE 5MG TABLET PO SCH (08:17)
[2021-11-03 20:00] VITALS: BP 137/63
[2021-11-04 08:00] VITALS: BP 138/92
[2021-11-04] MEDS: AMMONIUM LACTATE 12% LOTION 240ML TOP SCH ×2 (09:00→17:00)
[2021-11-04] MEDS: DOCUSATE SODIUM 100MG CAPSULE PO SCH ×2 (09:34→17:28)
[2021-11-04] MEDS: FERROUS SULFATE 325MG TABLET PO SCH ×3 (09:34→17:28)
[2021-11-04] MEDS: APIXABAN 5 MG TABLET PO SCH ×2 (09:34→17:28)
[2021-11-04] MEDS: FAMOTIDINE 20MG TABLET PO SCH ×2 (09:34→22:41)
[2021-11-04] MEDS: ZINC SULFATE 220 MG ( 50 ) CAPSULE PO SCH (09:34)
[2021-11-04] MEDS: ASCORBIC ACID 500 MG TABLET PO SCH (09:34)
[2021-11-04] MEDS: MULTIVITAMINS,THER W-MINERALS TABLET PO SCH (09:34)
[2021-11-04] MEDS: ASPIRIN 81MG TABLET PO SCH (09:34)
[2021-11-04] MEDS: AMLODIPINE 5MG TABLET PO SCH (09:35)
[2021-11-04] MEDS: POLYETHYLENE GLYCOL 3350 (17GM) 1 DOSE PACK PO SCH (09:35)
[2021-11-04 20:00] VITALS: BP 119/54
[2021-11-05 08:00] VITALS: BP 128/73
[2021-11-05] MEDS: ASPIRIN 81MG TABLET PO SCH (08:40)
[2021-11-05] MEDS: FERROUS SULFATE 325MG TABLET PO SCH ×3 (08:40→17:18)
[2021-11-05] MEDS: ZINC SULFATE 220 MG ( 50 ) CAPSULE PO SCH (08:40)
[2021-11-05] MEDS: DOCUSATE SODIUM 100MG CAPSULE PO SCH ×2 (08:40→17:18)
[2021-11-05] MEDS: ASCORBIC ACID 500 MG TABLET PO SCH (08:40)
[2021-11-05] MEDS: FAMOTIDINE 20MG TABLET PO SCH ×2 (08:40→20:24)
[2021-11-05] MEDS: APIXABAN 5 MG TABLET PO SCH ×2 (08:40→17:18)
[2021-11-05] MEDS: MULTIVITAMINS,THER W-MINERALS TABLET PO SCH (08:40)
[2021-11-05] MEDS: AMLODIPINE 5MG TABLET PO SCH (08:41)
[2021-11-05] MEDS: POLYETHYLENE GLYCOL 3350 (17GM) 1 DOSE PACK PO SCH (08:41)
[2021-11-05] MEDS: AMMONIUM LACTATE 12% LOTION 240ML TOP SCH ×2 (08:42→17:18)
[2021-11-05 20:25] VITALS: BP 124/74
[2021-11-06 08:00] VITALS: BP 133/85
[2021-11-06] MEDS: APIXABAN 5 MG TABLET PO SCH ×2 (09:00→17:20)
[2021-11-06] MEDS: FERROUS SULFATE 325MG TABLET PO SCH ×3 (09:00→17:20)
[2021-11-06] MEDS: AMLODIPINE 5MG TABLET PO SCH (09:00)
[2021-11-06] MEDS: DOCUSATE SODIUM 100MG CAPSULE PO SCH ×2 (09:00→17:20)
[2021-11-06] MEDS: ZINC SULFATE 220 MG ( 50 ) CAPSULE PO SCH (09:00)
[2021-11-06] MEDS: POLYETHYLENE GLYCOL 3350 (17GM) 1 DOSE PACK PO SCH (09:00)
[2021-11-06] MEDS: ASPIRIN 81MG TABLET PO SCH (09:00)
[2021-11-06] MEDS: AMMONIUM LACTATE 12% LOTION 240ML TOP SCH ×2 (09:00→17:20)
[2021-11-06] MEDS: ASCORBIC ACID 500 MG TABLET PO SCH (09:00)
[2021-11-06] MEDS: MULTIVITAMINS,THER W-MINERALS TABLET PO SCH (09:00)
[2021-11-06] MEDS: FAMOTIDINE 20MG TABLET PO SCH ×2 (09:00→20:41)
[2021-11-06 20:00] VITALS: BP 150/86
[2021-11-07 08:00] VITALS: BP 118/75
[2021-11-07] MEDS: POLYETHYLENE GLYCOL 3350 (17GM) 1 DOSE PACK PO SCH (09:00)
[2021-11-07] MEDS: APIXABAN 5 MG TABLET PO SCH ×2 (09:00→17:14)
[2021-11-07] MEDS: FAMOTIDINE 20MG TABLET PO SCH ×2 (09:00→21:00)
[2021-11-07] MEDS: FERROUS SULFATE 325MG TABLET PO SCH ×3 (09:00→17:14)
[2021-11-07] MEDS: MULTIVITAMINS,THER W-MINERALS TABLET PO SCH (09:00)
[2021-11-07] MEDS: AMMONIUM LACTATE 12% LOTION 240ML TOP SCH ×2 (09:00→17:13)
[2021-11-07] MEDS: AMLODIPINE 5MG TABLET PO SCH (09:00)
[2021-11-07] MEDS: DOCUSATE SODIUM 100MG CAPSULE PO SCH ×2 (09:00→17:14)
[2021-11-07] MEDS: ASCORBIC ACID 500 MG TABLET PO SCH (09:00)
[2021-11-07] MEDS: ZINC SULFATE 220 MG ( 50 ) CAPSULE PO SCH (09:00)
[2021-11-07] MEDS: ASPIRIN 81MG TABLET PO SCH (09:00)
[2021-11-07 20:32] VITALS: BP 124/74
[2021-11-08 07:55] VITALS: BP 123/74
[2021-11-08] MEDS: FAMOTIDINE 20MG TABLET PO SCH ×2 (09:27→22:01)
[2021-11-08] MEDS: MULTIVITAMINS,THER W-MINERALS TABLET PO SCH (09:27)
[2021-11-08] MEDS: ERGOCALCIFEROL 50000UNITS CAPSULE PO SCH (09:27)
[2021-11-08] MEDS: ASCORBIC ACID 500 MG TABLET PO SCH (09:27)
[2021-11-08] MEDS: ASPIRIN 81MG TABLET PO SCH (09:27)
[2021-11-08] MEDS: DOCUSATE SODIUM 100MG CAPSULE PO SCH ×2 (09:27→16:32)
[2021-11-08] MEDS: ZINC SULFATE 220 MG ( 50 ) CAPSULE PO SCH (09:27)
[2021-11-08] MEDS: AMLODIPINE 5MG TABLET PO SCH (09:28)
[2021-11-08] MEDS: POLYETHYLENE GLYCOL 3350 (17GM) 1 DOSE PACK PO SCH (09:28)
[2021-11-08] MEDS: FERROUS SULFATE 325MG TABLET PO SCH ×3 (09:28→16:33)
[2021-11-08] MEDS: APIXABAN 5 MG TABLET PO SCH ×2 (09:28→16:33)
[2021-11-08] MEDS: AMMONIUM LACTATE 12% LOTION 240ML TOP SCH ×2 (09:29→16:33)
[2021-11-08] MEDS ORDERED: AMLO5TAB88 PO (12:33)
[2021-11-08] MEDS ORDERED: DOCU-150 PO (12:33)
[2021-11-08] MEDS ORDERED: APIX5TAB PO (12:33)
[2021-11-08] MEDS: ACETAMINOPHEN 325MG TABLET PO PRN (16:32)
[2021-11-08 20:00] VITALS: BP 149/85
[2021-11-09 08:00] VITALS: BP 136/86
[2021-11-09] MEDS: POLYETHYLENE GLYCOL 3350 (17GM) 1 DOSE PACK PO SCH (09:00)
[2021-11-09] MEDS: APIXABAN 5 MG TABLET PO SCH (09:43)
[2021-11-09] MEDS: ASPIRIN 81MG TABLET PO SCH (09:43)
[2021-11-09] MEDS: DOCUSATE SODIUM 100MG CAPSULE PO SCH (09:43)
[2021-11-09] MEDS: FERROUS SULFATE 325MG TABLET PO SCH ×2 (09:44→13:06)
[2021-11-09] MEDS: AMLODIPINE 5MG TABLET PO SCH (09:44)
[2021-11-09] MEDS: FAMOTIDINE 20MG TABLET PO SCH (09:44)
[2021-11-09] MEDS: ZINC SULFATE 220 MG ( 50 ) CAPSULE PO SCH (09:44)
[2021-11-09] MEDS: AMMONIUM LACTATE 12% LOTION 240ML TOP SCH (09:45)
[2021-11-09] MEDS: MULTIVITAMINS,THER W-MINERALS TABLET PO SCH (09:45)
[2021-11-09 12:42] VITALS: BP 136/86
[2021-11-09] MEDS: ASCORBIC ACID 500 MG TABLET PO SCH (13:06)
== END 2021-11-09 15:15 | disposition home health service (06) | DRG 463 ==
PROVIDERS: ADMIT Physical Medicine & Rehabilitation Spinal Cord Injury Medicine; ATTEND Internal Medicine
PROC: 0JBQ0ZZ Excision of Right Foot Subcutaneous Tissue and Fascia, Open Approach (ICD-10-PCS; principal; 2021-10-25)
PROC: 0JBQ0ZZ Excision of Right Foot Subcutaneous Tissue and Fascia, Open Approach (ICD-10-PCS; 2021-10-25)
PROC: 0JBQ0ZZ Excision of Right Foot Subcutaneous Tissue and Fascia, Open Approach (ICD-10-PCS; 2021-10-25)
DX: M62.82 Rhabdomyolysis (principal); A41.9 Sepsis, unspecified organism; E44.0 Moderate protein-calorie malnutrition; N39.0 Urinary tract infection, site not specified; Z68.43 Body mass index [BMI] 50.0-59.9, adult; G82.20 Paraplegia, unspecified; I82.403 Acute embolism and thrombosis of unspecified deep veins of lower extremity, bilateral; D64.9 Anemia, unspecified; E53.8 Deficiency of other specified B group vitamins; E55.9 Vitamin D deficiency, unspecified; E66.01 Morbid (severe) obesity due to excess calories; I11.0 Hypertensive heart disease with heart failure; I50.9 Heart failure, unspecified; E61.1 Iron deficiency; F39 Unspecified mood [affective] disorder; R29.6 Repeated falls; L89.90 Pressure ulcer of unspecified site, unspecified stage; R26.89 Other abnormalities of gait and mobility; R53.81 Other malaise; Z91.81 History of falling; Z79.01 Long term (current) use of anticoagulants; Z86.718 Personal history of other venous thrombosis and embolism; Z79.899 Other long term (current) drug therapy; Z71.3 Dietary counseling and surveillance
CPT/HCPCS: 36415; 80053; 84134; 85025; 93970; 97110; 97116; 97150; 97162; 97166; 97530; 97535

== ENCOUNTER 2022-04-27 12:22 | Inpatient (IN) | payer MEDICAID, OTHER ==
[~2022-04-27] VITALS: Ht 182.9 cm; Wt 147.0 kg
[~2022-04-27 12:22] MED LIST changes: -ALBU6.7H9 INH; -AMLO10TA80 PO; +AMLO5TAB88 PO; -CARV6.2548 MT; +DOCU-150 PO; -FURO20TA4 MT; -ISOS30TA91 MT; -LISI-186 MT
[2022-04-27] MEDS ORDERED: SODIUM CHLORIDE 0.9% 1,000 ML IV ONE (14:15)
[2022-04-27 14:36] LABS: BASOPHILS % 0.2 % (0.0-2.0); EOSINOPHILS % 0.4 % (0.0-5.0); HEMOGLOBIN. 13.3 g/dL (14.0-18.0); LYMPHOCYTES % 20.6 % (20.0-50.0); MEAN CORPUSCULAR HEMOGLOBIN 30.3 pg (28.0-32.0); MEAN CORPUSCULAR VOLUME 90.9 fL (80.0-94.0); MEAN PLATELET VOLUME 8.2 fl (7.4-10.4); MONOCYTES % 4.6 % (2.0-8.0); NEUTROPHILS % 74.2 % (40.0-76.0); PLATELET 438 x1000/uL (130-400)
[2022-04-27 14:41] LABS: BG BASE EXCESS -9.7 mmol/L (-2.0-2.0); BG CARBOXYHEMOGLOBIN 1.5 % (0.5-1.5); BG FRACTION INSPIRED OXYGEN 32; BG HCO3 ACT 14.8 mmol/L (22.0-26.0); BG METHEMOGLOBIN 0.5 % (0.0-1.5); BG OXYGEN SATURATION 93.9 % (92.0-98.5); BG PCO2 28.9 mmHg (35.0-45.0); BG PH 7.328 (7.350-7.450); BG PO2 75.8 mmHg (75.0-100.0); BG SAMPLE SITE RIGHT RADIAL; BG VENT MODE NASAL CANNULA
[2022-04-27 14:47] LABS: INR 1.1; PROTHROMBIN TIME 11.8 sec (9.6-11.0)
[2022-04-27 15:00] LABS: ETHANOL BLOOD < 10 mg/dL
[2022-04-27 16:03] LABS: CHLORIDE 102 mEq/L (98-107)
[2022-04-27 16:47] LABS: CREATINE KINASE 170 IU/L (39-308)
[2022-04-27] MEDS ORDERED: VANCOMYCIN 1G PREMIX 200 ML IV ONE (17:00)
[2022-04-27] MEDS ORDERED: PIPERACILLIN/TAZ 3.375G PREMIX 50 ML IV ONE (17:00)
[2022-04-27] MEDS ORDERED: POTASSIUM CHLORIDE 20MEQ TABLET SR PO ONE (18:30)
[2022-04-27 19:32] LABS: T4 FREE 1.53 ng/dL (0.76-1.46)
[2022-04-27] MEDS ORDERED: ZOLPIDEM TARTRATE 5MG TABLET PO PRN (19:45)
[2022-04-27] MEDS ORDERED: ONDANSETRON HCL 4MG/2ML INJ IV PRN (19:45)
[2022-04-27] MEDS ORDERED: ACETAMINOPHEN 325MG TABLET PO PRN (19:45)
[2022-04-27] MEDS ORDERED: NITROGLYCERIN 0.4MG TABLET SL SL PRN (19:45)
[2022-04-27] MEDS ORDERED: CLONIDINE 0.1MG TABLET PO PRN (19:45)
[2022-04-27] MEDS ORDERED: GUAIFENESIN 200MG/10ML SUGAR FREE UDC PO PRN (19:45)
[2022-04-27] MEDS ORDERED: IPRATROPIUM/ALBUTEROL 0.5-3(2.5)MG/3ML NEB NEB PRN (19:45)
[2022-04-27 20:09] LABS: VITAMIN B12 SERUM 1101 pg/mL (211-911)
[2022-04-27] MEDS: MAGNESIUM OXIDE 400MG TABLET PO SCH (20:25)
[2022-04-27] MEDS ORDERED: AZITHROMYCIN 500 MG in DEXT 5% WATER 250 ML IV SCH (21:00)
[2022-04-27] MEDS: FUROSEMIDE 40MG/4ML VIAL IVP SCH (21:49)
[2022-04-27] MEDS: FAMOTIDINE 20MG TABLET PO SCH (21:50)
[2022-04-27] MEDS: SPIRONOLACTONE 25MG TABLET PO SCH (21:50)
[2022-04-28 00:33] LABS: CREATINE KINASE MB FRACTION 5.1 ng/mL (0.5-3.6)
[2022-04-28] MEDS: KETOROLAC 15MG/ML VIAL IV PRN ×3 (00:40→18:07)
[2022-04-28 05:22] LABS: BASOPHILS % 0.1 % (0.0-2.0); EOSINOPHILS % 0.8 % (0.0-5.0); HEMATOCRIT. 37.5 % (42.0-52.0); HEMOGLOBIN. 12.3 g/dL (14.0-18.0); MEAN CORPUSCULAR HEMOGLOBIN 29.2 pg (28.0-32.0); MEAN CORPUSCULAR VOLUME 89.2 fL (80.0-94.0); MEAN PLATELET VOLUME 8.1 fl (7.4-10.4); MONOCYTES % 8.5 % (2.0-8.0); NEUTROPHILS % 75.6 % (40.0-76.0); PLATELET 311 x1000/uL (130-400); RED BLOOD CELL COUNT 4.21 mill/uL (4.7-6.1)
[2022-04-28] MEDS: APIXABAN 5 MG TABLET PO SCH ×2 (05:27→18:07)
[2022-04-28 05:39] LABS: CHLORIDE 110 mEq/L (98-107)
[2022-04-28 05:53] LABS: PHOSPHORUS 2.9 mg/dL (2.5-4.9)
[2022-04-28] MEDS ORDERED: CEFTRIAXONE 1 G PREMIX 50 ML IV SCH (09:00)
[2022-04-28] MEDS: ASPIRIN 325MG EC TABLET PO SCH (09:57)
[2022-04-28] MEDS: LOSARTAN POTASSIUM 50 MG TABLET PO SCH (09:57)
[2022-04-28] MEDS: MAGNESIUM/ALUMINUM HYDROXIDE/SIMETHICONE 30ML UDC PO PRN (10:02)
[2022-04-28] MEDS: FAMOTIDINE 20MG TABLET PO SCH ×2 (10:04→20:43)
[2022-04-28] MEDS: SPIRONOLACTONE 25MG TABLET PO SCH ×2 (10:04→20:43)
[2022-04-28] MEDS: FUROSEMIDE 40MG/4ML VIAL IVP SCH ×2 (10:05→20:43)
[2022-04-28] MEDS: MAGNESIUM OXIDE 400MG TABLET PO SCH (10:15)
[2022-04-28] MEDS: CEFTRIAXONE 1,000 MG in DEXTROSE 5% WATER 50 ML IV SCH (10:15)
[2022-04-28 11:00] VITALS: BP 126/79
[2022-04-28] MEDS ORDERED: POTASSIUM CHLORIDE 20MEQ TABLET SR PO NR (11:00)
[2022-04-28 12:00] VITALS: BP 126/79
[2022-04-28] MEDS: ACETAMINOPHEN 325MG TABLET PO PRN (14:08)
[2022-04-28] MEDS: AZITHROMYCIN 500 MG in DEXT 5% WATER 250 ML IV SCH (14:58)
[2022-04-28 16:00] VITALS: BP 110/70
[2022-04-28 20:00] VITALS: BP 105/65
[2022-04-29] VITALS: BP 115/66
[2022-04-29 04:00] VITALS: BP 113/80
[2022-04-29] MEDS: APIXABAN 5 MG TABLET PO SCH ×2 (06:06→18:18)
[2022-04-29 08:00] VITALS: BP 104/76
[2022-04-29] MEDS: LOSARTAN POTASSIUM 50 MG TABLET PO SCH (09:00)
[2022-04-29] MEDS ORDERED: INFLUENZA VACCINE 05/PF 0.5 ML SYRINGE IM ONE (09:00)
[2022-04-29] MEDS ORDERED: PNEUMOCOCCAL 23-VAL P-SAC VAC 0.5 ML IM ONE (09:00)
[2022-04-29] MEDS: ASPIRIN 325MG EC TABLET PO SCH (09:02)
[2022-04-29] MEDS: CEFTRIAXONE 1,000 MG in DEXTROSE 5% WATER 50 ML IV SCH (09:02)
[2022-04-29] MEDS: FUROSEMIDE 40MG/4ML VIAL IVP SCH ×2 (09:03→21:18)
[2022-04-29] MEDS: MAGNESIUM OXIDE 400MG TABLET PO SCH (09:03)
[2022-04-29] MEDS: SPIRONOLACTONE 25MG TABLET PO SCH ×2 (09:03→21:18)
[2022-04-29] MEDS: FAMOTIDINE 20MG TABLET PO SCH ×2 (09:03→21:18)
[2022-04-29 12:00] VITALS: BP 126/76
[2022-04-29] MEDS: AZITHROMYCIN 500 MG in DEXT 5% WATER 250 ML IV SCH (13:20)
[2022-04-29] MEDS: SODIUM HYPOCHLORITE 0.125% 473ML SOLUTION TOP SCH ×2 (13:20→18:19)
[2022-04-29 16:00] VITALS: BP 110/71
[2022-04-29 20:00] VITALS: BP 162/89
[2022-04-30] VITALS: BP 133/93
[2022-04-30 04:00] VITALS: BP 144/93
[2022-04-30] MEDS: APIXABAN 5 MG TABLET PO SCH ×2 (06:00→17:16)
[2022-04-30 08:00] VITALS: BP 151/110
[2022-04-30] MEDS: SPIRONOLACTONE 25MG TABLET PO SCH ×2 (10:47→20:46)
[2022-04-30] MEDS: ASPIRIN 325MG EC TABLET PO SCH (10:47)
[2022-04-30] MEDS: FAMOTIDINE 20MG TABLET PO SCH ×2 (10:47→20:46)
[2022-04-30] MEDS: LOSARTAN POTASSIUM 50 MG TABLET PO SCH (10:48)
[2022-04-30 12:00] VITALS: BP 139/107
[2022-04-30] MEDS: AZITHROMYCIN 500 MG in DEXT 5% WATER 250 ML IV SCH (14:07)
[2022-04-30] MEDS: FUROSEMIDE 40MG/4ML VIAL IVP SCH ×2 (14:07→20:46)
[2022-04-30] MEDS: SODIUM HYPOCHLORITE 0.125% 473ML SOLUTION TOP SCH ×2 (14:07→17:17)
[2022-04-30] MEDS: CEFTRIAXONE 1,000 MG in DEXTROSE 5% WATER 50 ML IV SCH (14:07)
[2022-04-30 16:00] VITALS: BP 129/81
[2022-04-30 20:00] VITALS: BP 124/79
[2022-04-30] MEDS: PIPERACILLIN/TAZOBACTAM 3.375 G in DEXTROSE 5% WATER 50 ML IV SCH (20:55)
[2022-04-30] MEDS ORDERED: VANCOMYCIN 1,750 MG in DEXT 5% WATER 500 ML IV NR (21:00)
[2022-04-30 21:07] LABS: HEMATOCRIT 35.6 % (42.0-52.0); HEMOGLOBIN 11.9 g/dL (14.0-18.0); MEAN CORPUSCULAR HEMOGLOBIN 29.6 pg (28.0-32.0); MEAN CORPUSCULAR VOLUME 88.5 fL (80.0-94.0); PLATELET 314 x1000/uL (130-400); RED BLOOD CELL COUNT 4.02 mill/uL (4.7-6.1)
[2022-04-30 21:14] LABS: CHLORIDE 104 mEq/L (98-107)
[2022-05-01] VITALS: BP 139/94
[2022-05-01 04:00] VITALS: BP 156/88
[2022-05-01] MEDS: APIXABAN 5 MG TABLET PO SCH ×2 (06:19→17:16)
[2022-05-01] MEDS: PIPERACILLIN/TAZOBACTAM 3.375 G in DEXTROSE 5% WATER 50 ML IV SCH ×2 (06:28→13:46)
[2022-05-01 08:00] VITALS: BP 138/86
[2022-05-01] MEDS: FUROSEMIDE 40MG/4ML VIAL IVP SCH ×2 (08:07→20:40)
[2022-05-01] MEDS: FAMOTIDINE 20MG TABLET PO SCH ×2 (08:07→20:40)
[2022-05-01] MEDS: SPIRONOLACTONE 25MG TABLET PO SCH ×2 (08:08→20:40)
[2022-05-01] MEDS: SODIUM HYPOCHLORITE 0.125% 473ML SOLUTION TOP SCH ×2 (08:08→17:16)
[2022-05-01] MEDS: ASPIRIN 325MG EC TABLET PO SCH (08:08)
[2022-05-01] MEDS: LOSARTAN POTASSIUM 50 MG TABLET PO SCH (08:08)
[2022-05-01] MEDS ORDERED: VANCOMYCIN 750MG PREMIX 150 ML IV SCH (09:00)
[2022-05-01] MEDS: VANCOMYCIN 1500MG in DEXTROSE 5% WATER 250ML IV SCH ×2 (10:03→21:18)
[2022-05-01 12:00] VITALS: BP 127/82
[2022-05-01 16:00] VITALS: BP 139/85
[2022-05-01 20:00] VITALS: BP 132/92
[2022-05-02] VITALS: BP 127/94
[2022-05-02] MEDS: PIPERACILLIN/TAZOBACTAM 3.375 G in DEXTROSE 5% WATER 50 ML IV SCH ×2 (00:14→05:54)
[2022-05-02 04:00] VITALS: BP 128/89
[2022-05-02] MEDS: APIXABAN 5 MG TABLET PO SCH ×2 (06:00→17:00)
[2022-05-02 07:45] VITALS: BP 154/90
[2022-05-02] MEDS: FAMOTIDINE 20MG TABLET PO SCH ×2 (08:13→20:40)
[2022-05-02] MEDS: FUROSEMIDE 40MG/4ML VIAL IVP SCH ×2 (08:13→20:40)
[2022-05-02] MEDS: ASPIRIN 325MG EC TABLET PO SCH (08:13)
[2022-05-02] MEDS: SPIRONOLACTONE 25MG TABLET PO SCH ×2 (08:13→20:40)
[2022-05-02] MEDS: LOSARTAN POTASSIUM 50 MG TABLET PO SCH (08:13)
[2022-05-02] MEDS: SODIUM HYPOCHLORITE 0.125% 473ML SOLUTION TOP SCH ×2 (08:14→17:00)
[2022-05-02] MEDS ORDERED: TETRACAINE/BENZOCAINE/BUTAMBEN 20 GM SPRAY MM ONE (09:33)
[2022-05-02] MEDS ORDERED: LIDOCAINE 2% 6ML GLYDO MM ONE (09:33)
[2022-05-02] MEDS ORDERED: MIDAZOLAM HCL 2 MG/2 ML VIAL ONE (09:33)
[2022-05-02] MEDS ORDERED: FENTANYL CITRATE/PF 50MCG/ML 2ML VIAL ONE (09:34)
[2022-05-02] MEDS: VANCOMYCIN 1500MG in DEXTROSE 5% WATER 250ML IV SCH (10:01)
[2022-05-02 12:00] VITALS: BP 146/69
[2022-05-02] MEDS: CEFTRIAXONE 2 G in DEXTROSE 5% WATER 50 ML IV SCH (15:03)
[2022-05-02 16:00] VITALS: BP 129/85
[2022-05-02 20:00] VITALS: BP 128/77
[2022-05-03] VITALS: BP 140/96
[2022-05-03 04:00] VITALS: BP 117/68
[2022-05-03] MEDS: APIXABAN 5 MG TABLET PO SCH ×2 (05:16→17:50)
[2022-05-03 08:00] VITALS: BP 146/83
[2022-05-03] MEDS: LOSARTAN POTASSIUM 50 MG TABLET PO SCH (09:00)
[2022-05-03] MEDS: SPIRONOLACTONE 25MG TABLET PO SCH ×2 (10:12→21:56)
[2022-05-03] MEDS: ASPIRIN 325MG EC TABLET PO SCH (10:13)
[2022-05-03] MEDS: FUROSEMIDE 40MG/4ML VIAL IVP SCH ×2 (10:13→21:57)
[2022-05-03] MEDS: FAMOTIDINE 20MG TABLET PO SCH ×2 (10:13→21:57)
[2022-05-03] MEDS: SODIUM HYPOCHLORITE 0.125% 473ML SOLUTION TOP SCH ×2 (10:13→17:51)
[2022-05-03] MEDS: VANCOMYCIN 1250MG in DEXTROSE 5% WATER 250ML IV SCH (10:26)
[2022-05-03 12:00] VITALS: BP 124/79
[2022-05-03] MEDS: CEFTRIAXONE 2 G in DEXTROSE 5% WATER 50 ML IV SCH (14:23)
[2022-05-03 16:00] VITALS: BP 138/91
[2022-05-03 20:00] VITALS: BP 124/81
[2022-05-04] VITALS (7 sets, daily range): BP systolic 108–151; BP diastolic 51–100
[2022-05-04] MEDS: VANCOMYCIN 1250MG in DEXTROSE 5% WATER 250ML IV SCH ×2 (02:53→20:07)
[2022-05-04] MEDS: APIXABAN 5 MG TABLET PO SCH ×2 (06:00→17:12)
[2022-05-04] MEDS: ASPIRIN 325MG EC TABLET PO SCH (09:07)
[2022-05-04] MEDS: LOSARTAN POTASSIUM 50 MG TABLET PO SCH (09:07)
[2022-05-04] MEDS: SODIUM HYPOCHLORITE 0.125% 473ML SOLUTION TOP SCH ×2 (09:08→17:12)
[2022-05-04] MEDS: FAMOTIDINE 20MG TABLET PO SCH ×2 (09:08→20:07)
[2022-05-04] MEDS: SPIRONOLACTONE 25MG TABLET PO SCH ×2 (09:08→20:08)
[2022-05-04] MEDS: FUROSEMIDE 40MG/4ML VIAL IVP SCH ×2 (09:08→20:08)
[2022-05-04] MEDS: CEFTRIAXONE 2 G in DEXTROSE 5% WATER 50 ML IV SCH (17:13)
[2022-05-05] VITALS: BP 113/74
[2022-05-05 00:07] LABS: CHLORIDE 93 mEq/L (98-107)
[2022-05-05 04:00] VITALS: BP 123/85
[2022-05-05] MEDS: APIXABAN 5 MG TABLET PO SCH ×2 (04:57→16:54)
[2022-05-05 06:27] LABS: BASOPHILS % 0.4 % (0.0-2.0); EOSINOPHILS % 4.4 % (0.0-5.0); HEMATOCRIT. 36.9 % (42.0-52.0); HEMOGLOBIN. 12.3 g/dL (14.0-18.0); LYMPHOCYTES % 26.2 % (20.0-50.0); MEAN CORPUSCULAR HEMOGLOBIN 29.3 pg (28.0-32.0); MEAN PLATELET VOLUME 7.5 fl (7.4-10.4); MONOCYTES % 13.2 % (2.0-8.0); NEUTROPHILS % 55.8 % (40.0-76.0); PLATELET 347 x1000/uL (130-400); RED BLOOD CELL COUNT 4.19 mill/uL (4.7-6.1); RED CELL DISTRIBUTION WIDTH 13.8 % (11.6-14.6)
[2022-05-05 07:38] LABS: CHLORIDE 97 mEq/L (98-107)
[2022-05-05 08:00] VITALS: BP 148/88
[2022-05-05] MEDS: SPIRONOLACTONE 25MG TABLET PO SCH ×2 (09:27→20:49)
[2022-05-05] MEDS: ASPIRIN 325MG EC TABLET PO SCH (09:27)
[2022-05-05] MEDS: LOSARTAN POTASSIUM 50 MG TABLET PO SCH (09:27)
[2022-05-05] MEDS: FAMOTIDINE 20MG TABLET PO SCH ×2 (09:27→20:49)
[2022-05-05] MEDS: FUROSEMIDE 40MG/4ML VIAL IVP SCH ×2 (09:27→20:50)
[2022-05-05] MEDS: SODIUM HYPOCHLORITE 0.125% 473ML SOLUTION TOP SCH ×2 (09:28→16:45)
[2022-05-05 12:00] VITALS: BP 112/94
[2022-05-05] MEDS: CEFTRIAXONE 2 G in DEXTROSE 5% WATER 50 ML IV SCH (14:42)
[2022-05-05 15:59] VITALS: BP 109/73
[2022-05-05 20:00] VITALS: BP 99/53
[2022-05-05] MEDS: VANCOMYCIN 1250MG in DEXTROSE 5% WATER 250ML IV SCH (20:50)
[2022-05-05] MEDS ORDERED: VANCOMYCIN 1250MG in DEXTROSE 5% WATER 250ML IV SCH (21:00)
[2022-05-06] VITALS: BP 102/66
[2022-05-06 04:00] VITALS: BP 124/77
[2022-05-06] MEDS: APIXABAN 5 MG TABLET PO SCH ×2 (05:15→17:27)
[2022-05-06 06:51] LABS: BASOPHILS % 0.5 % (0.0-2.0); EOSINOPHILS % 3.6 % (0.0-5.0); HEMATOCRIT. 36.8 % (42.0-52.0); HEMOGLOBIN. 12.1 g/dL (14.0-18.0); LYMPHOCYTES % 22.5 % (20.0-50.0); MEAN PLATELET VOLUME 7.6 fl (7.4-10.4); MONOCYTES % 9.8 % (2.0-8.0); NEUTROPHILS % 63.6 % (40.0-76.0); PLATELET 348 x1000/uL (130-400); RED BLOOD CELL COUNT 4.18 mill/uL (4.7-6.1)
[2022-05-06 06:55] LABS: CHLORIDE 95 mEq/L (98-107)
[2022-05-06 07:04] LABS: PHOSPHORUS 3.4 mg/dL (2.5-4.9)
[2022-05-06 08:00] VITALS: BP 103/70
[2022-05-06] MEDS: FAMOTIDINE 20MG TABLET PO SCH ×2 (09:32→21:04)
[2022-05-06] MEDS: FUROSEMIDE 40MG/4ML VIAL IVP SCH ×2 (09:32→21:04)
[2022-05-06] MEDS: LOSARTAN POTASSIUM 50 MG TABLET PO SCH (09:32)
[2022-05-06] MEDS: SPIRONOLACTONE 25MG TABLET PO SCH ×2 (09:32→21:04)
[2022-05-06] MEDS: ASPIRIN 325MG EC TABLET PO SCH (09:32)
[2022-05-06] MEDS: SODIUM HYPOCHLORITE 0.125% 473ML SOLUTION TOP SCH ×2 (09:33→17:28)
[2022-05-06] MEDS ORDERED: MAGNESIUM 2 G PREMIX 50 ML IV NR (10:00)
[2022-05-06 12:00] VITALS: BP 115/79
[2022-05-06 16:00] VITALS: BP 102/57
[2022-05-06] MEDS: CEFTRIAXONE 2 G in DEXTROSE 5% WATER 50 ML IV SCH (16:18)
[2022-05-06 20:00] VITALS: BP 100/60
[2022-05-06] MEDS: VANCOMYCIN 1250MG in DEXTROSE 5% WATER 250ML IV SCH (21:04)
[2022-05-07] VITALS: BP 122/80
[2022-05-07 04:00] VITALS: BP 119/70
[2022-05-07 06:16] LABS: BASOPHILS % 0.5 % (0.0-2.0); EOSINOPHILS % 3.8 % (0.0-5.0); HEMATOCRIT. 37.1 % (42.0-52.0); HEMOGLOBIN. 12.3 g/dL (14.0-18.0); LYMPHOCYTES % 22.7 % (20.0-50.0); MEAN CORPUSCULAR HEMOGLOBIN 29.3 pg (28.0-32.0); MEAN CORPUSCULAR VOLUME 88.4 fL (80.0-94.0); MEAN PLATELET VOLUME 7.4 fl (7.4-10.4); MONOCYTES % 11.1 % (2.0-8.0); NEUTROPHILS % 61.9 % (40.0-76.0); PLATELET 316 x1000/uL (130-400); RED BLOOD CELL COUNT 4.19 mill/uL (4.7-6.1)
[2022-05-07 07:07] LABS: CHLORIDE 95 mEq/L (98-107)
[2022-05-07 07:15] LABS: PHOSPHORUS 3.6 mg/dL (2.5-4.9)
[2022-05-07 08:00] VITALS: BP 100/59
[2022-05-07] MEDS: LOSARTAN POTASSIUM 50 MG TABLET PO SCH (09:00)
[2022-05-07] MEDS: ASPIRIN 325MG EC TABLET PO SCH (09:34)
[2022-05-07] MEDS: SPIRONOLACTONE 25MG TABLET PO SCH ×2 (09:34→21:09)
[2022-05-07] MEDS: FAMOTIDINE 20MG TABLET PO SCH ×2 (09:34→21:13)
[2022-05-07] MEDS: SODIUM HYPOCHLORITE 0.125% 473ML SOLUTION TOP SCH ×2 (09:35→17:26)
[2022-05-07] MEDS: FUROSEMIDE 40MG/4ML VIAL IVP SCH ×2 (09:35→21:11)
[2022-05-07 12:00] VITALS: BP 103/71
[2022-05-07] MEDS: CEFTRIAXONE 2 G in DEXTROSE 5% WATER 50 ML IV SCH (14:12)
[2022-05-07 16:00] VITALS: BP 105/59
[2022-05-07 20:00] VITALS: BP 101/63
[2022-05-07] MEDS: VANCOMYCIN 1250MG in DEXTROSE 5% WATER 250ML IV SCH (21:08)
[2022-05-08] VITALS (7 sets, daily range): BP systolic 98–126; BP diastolic 58–75
[2022-05-08 07:35] LABS: BASOPHILS % 0.7 % (0.0-2.0); EOSINOPHILS % 4.4 % (0.0-5.0); HEMATOCRIT. 36.4 % (42.0-52.0); HEMOGLOBIN. 12.1 g/dL (14.0-18.0); LYMPHOCYTES % 28.7 % (20.0-50.0); MEAN CORPUSCULAR HEMOGLOBIN 29.5 pg (28.0-32.0); MEAN CORPUSCULAR VOLUME 88.9 fL (80.0-94.0); MEAN PLATELET VOLUME 7.6 fl (7.4-10.4); MONOCYTES % 11.9 % (2.0-8.0); NEUTROPHILS % 54.3 % (40.0-76.0); PLATELET 308 x1000/uL (130-400); RED CELL DISTRIBUTION WIDTH 14.3 % (11.6-14.6)
[2022-05-08] MEDS: ASPIRIN 325MG EC TABLET PO SCH (09:05)
[2022-05-08] MEDS: LOSARTAN POTASSIUM 50 MG TABLET PO SCH (09:05)
[2022-05-08] MEDS: FUROSEMIDE 40MG/4ML VIAL IVP SCH ×2 (09:05→20:20)
[2022-05-08] MEDS: SODIUM HYPOCHLORITE 0.125% 473ML SOLUTION TOP SCH ×2 (09:06→17:34)
[2022-05-08] MEDS: FAMOTIDINE 20MG TABLET PO SCH ×2 (09:06→20:20)
[2022-05-08] MEDS: SPIRONOLACTONE 25MG TABLET PO SCH ×2 (09:06→20:30)
[2022-05-08 11:10] LABS: PHOSPHORUS 3.4 mg/dL (2.5-4.9)
[2022-05-08] MEDS ORDERED: MENTHOL/LANOLIN/CALAMINE/ZN OX OINT 71GM TOP PRN (15:00)
[2022-05-08] MEDS: CEFTRIAXONE 2 G in DEXTROSE 5% WATER 50 ML IV SCH (15:08)
[2022-05-09] VITALS: BP 105/63
[2022-05-09 04:00] VITALS: BP 118/71
[2022-05-09 06:25] LABS: PHOSPHORUS 3.5 mg/dL (2.5-4.9)
[2022-05-09 06:33] LABS: BASOPHILS % 0.6 % (0.0-2.0); EOSINOPHILS % 4.4 % (0.0-5.0); HEMATOCRIT. 37.7 % (42.0-52.0); HEMOGLOBIN. 12.2 g/dL (14.0-18.0); LYMPHOCYTES % 25.8 % (20.0-50.0); MEAN CORPUSCULAR HEMOGLOBIN 28.6 pg (28.0-32.0); MEAN CORPUSCULAR VOLUME 88.3 fL (80.0-94.0); MEAN PLATELET VOLUME 7.6 fl (7.4-10.4); MONOCYTES % 13.9 % (2.0-8.0); NEUTROPHILS % 55.3 % (40.0-76.0); PLATELET 318 x1000/uL (130-400); RED BLOOD CELL COUNT 4.27 mill/uL (4.7-6.1)
[2022-05-09 08:00] VITALS: BP 110/66
[2022-05-09] MEDS ORDERED: TETRACAINE/BENZOCAINE/BUTAMBEN 20 GM SPRAY MM ONE (08:32)
[2022-05-09] MEDS ORDERED: LIDOCAINE 2% 6ML GLYDO MM ONE (08:32)
[2022-05-09] MEDS: SPIRONOLACTONE 25MG TABLET PO SCH ×2 (09:00→21:33)
[2022-05-09] MEDS ORDERED: MIDAZOLAM HCL 2 MG/2 ML VIAL ONE ×2 (09:00→09:01)
[2022-05-09] MEDS: FUROSEMIDE 40MG/4ML VIAL IVP SCH ×2 (09:00→21:32)
[2022-05-09] MEDS: LOSARTAN POTASSIUM 50 MG TABLET PO SCH (09:00)
[2022-05-09] MEDS ORDERED: VANCOMYCIN 1G PREMIX 200 ML IV SCH (09:00)
[2022-05-09] MEDS: SODIUM HYPOCHLORITE 0.125% 473ML SOLUTION TOP SCH (09:00)
[2022-05-09] MEDS: FAMOTIDINE 20MG TABLET PO SCH ×2 (09:00→21:37)
[2022-05-09] MEDS: ASPIRIN 325MG EC TABLET PO SCH (09:00)
[2022-05-09] MEDS ORDERED: FENTANYL CITRATE/PF 50MCG/ML 2ML VIAL ONE ×2 (09:00→09:01)
[2022-05-09] MEDS ORDERED: IOHEXOL-350 100 ML BOTTLE ONE (14:30)
[2022-05-09 16:00] VITALS: BP 155/80
[2022-05-09 20:00] VITALS: BP 105/67
[2022-05-09] MEDS: ENOXAPARIN 150MG/ML SYR SUBCUT SCH (21:34)
[2022-05-10] VITALS: BP 120/76
[2022-05-10 06:41] LABS: HEMATOCRIT. 36.1 % (42.0-52.0); HEMOGLOBIN. 12.1 g/dL (14.0-18.0); MEAN CORPUSCULAR HEMOGLOBIN 29.5 pg (28.0-32.0); MEAN CORPUSCULAR VOLUME 88.1 fL (80.0-94.0); MEAN PLATELET VOLUME 7.8 fl (7.4-10.4); PLATELET 301 x1000/uL (130-400); RED CELL DISTRIBUTION WIDTH 14.2 % (11.6-14.6)
[2022-05-10 07:07] LABS: CHLORIDE 99 mEq/L (98-107)
[2022-05-10 07:14] LABS: PHOSPHORUS 3.1 mg/dL (2.5-4.9)
[2022-05-10 08:00] VITALS: BP 112/77
[2022-05-10] MEDS: SODIUM HYPOCHLORITE 0.125% 473ML SOLUTION TOP SCH ×3 (09:00→17:00)
[2022-05-10 10:56] LABS: PLATELET ESTIMATE NORMAL
[2022-05-10] MEDS: ENOXAPARIN 150MG/ML SYR SUBCUT SCH ×2 (11:21→20:55)
[2022-05-10] MEDS: LOSARTAN POTASSIUM 50 MG TABLET PO SCH (11:21)
[2022-05-10] MEDS: FUROSEMIDE 40MG/4ML VIAL IVP SCH ×2 (11:21→20:57)
[2022-05-10] MEDS: ASPIRIN 325MG EC TABLET PO SCH (11:21)
[2022-05-10] MEDS: MAGNESIUM/ALUMINUM HYDROXIDE/SIMETHICONE 30ML UDC PO PRN (11:22)
[2022-05-10] MEDS: ACETAMINOPHEN 325MG TABLET PO PRN (11:22)
[2022-05-10] MEDS: FAMOTIDINE 20MG TABLET PO SCH ×2 (11:22→20:55)
[2022-05-10] MEDS: DOCUSATE SODIUM 100MG CAPSULE PO PRN (11:23)
[2022-05-10 12:00] VITALS: BP 98/65
[2022-05-10 16:00] VITALS: BP 114/71
[2022-05-10] MEDS: SPIRONOLACTONE 25MG TABLET PO SCH ×2 (16:13→20:58)
[2022-05-10 20:00] VITALS: BP 94/48
[2022-05-11] VITALS: BP 108/68
[2022-05-11 04:00] VITALS: BP 115/74
[2022-05-11 08:00] VITALS: BP 114/74
[2022-05-11 12:00] VITALS: BP 107/65
[2022-05-11] MEDS: ENOXAPARIN 150MG/ML SYR SUBCUT SCH ×2 (13:22→20:50)
[2022-05-11] MEDS: SPIRONOLACTONE 25MG TABLET PO SCH ×2 (13:23→20:51)
[2022-05-11] MEDS: LOSARTAN POTASSIUM 50 MG TABLET PO SCH (13:23)
[2022-05-11] MEDS: ASPIRIN 325MG EC TABLET PO SCH (13:23)
[2022-05-11] MEDS: FUROSEMIDE 40MG/4ML VIAL IVP SCH ×2 (13:23→20:50)
[2022-05-11] MEDS: ACETAMINOPHEN 325MG TABLET PO PRN (13:24)
[2022-05-11] MEDS: FAMOTIDINE 20MG TABLET PO SCH ×2 (13:24→20:51)
[2022-05-11] MEDS: MAGNESIUM/ALUMINUM HYDROXIDE/SIMETHICONE 30ML UDC PO PRN (13:25)
[2022-05-11] MEDS: SODIUM HYPOCHLORITE 0.125% 473ML SOLUTION TOP SCH ×2 (13:26→17:00)
[2022-05-11 16:00] VITALS: BP 102/59
[2022-05-11 20:00] VITALS: BP 98/67
[2022-05-12] VITALS: BP 94/52
[2022-05-12 04:00] VITALS: BP 105/77
[2022-05-12 06:43] LABS: HEMATOCRIT. 35.9 % (42.0-52.0); HEMOGLOBIN. 11.9 g/dL (14.0-18.0); MEAN CORPUSCULAR HEMOGLOBIN 29.2 pg (28.0-32.0); MEAN CORPUSCULAR VOLUME 88.4 fL (80.0-94.0); MEAN PLATELET VOLUME 7.6 fl (7.4-10.4); PLATELET 264 x1000/uL (130-400); RED BLOOD CELL COUNT 4.06 mill/uL (4.7-6.1); RED CELL DISTRIBUTION WIDTH 14.2 % (11.6-14.6)
[2022-05-12 08:00] VITALS: BP 105/66
[2022-05-12] MEDS: LOSARTAN POTASSIUM 50 MG TABLET PO SCH (08:43)
[2022-05-12] MEDS: SODIUM HYPOCHLORITE 0.125% 473ML SOLUTION TOP SCH ×2 (08:43→16:01)
[2022-05-12] MEDS: FAMOTIDINE 20MG TABLET PO SCH ×2 (08:43→22:07)
[2022-05-12] MEDS: FUROSEMIDE 40MG/4ML VIAL IVP SCH ×2 (08:43→21:00)
[2022-05-12] MEDS: ASPIRIN 325MG EC TABLET PO SCH (08:43)
[2022-05-12] MEDS: SPIRONOLACTONE 25MG TABLET PO SCH ×2 (08:43→21:00)
[2022-05-12] MEDS: ENOXAPARIN 150MG/ML SYR SUBCUT SCH ×2 (08:43→22:03)
[2022-05-12 09:19] LABS: CHLORIDE 97 mEq/L (98-107)
[2022-05-12 12:00] VITALS: BP 130/58
[2022-05-12] MEDS: ACETAMINOPHEN 325MG TABLET PO PRN (12:00)
[2022-05-12 16:00] VITALS: BP 113/59
[2022-05-12 17:22] LABS: PLATELET ESTIMATE NORMAL
[2022-05-12 20:00] VITALS: BP 96/60
[2022-05-13] VITALS: BP 112/63
[2022-05-13 04:00] VITALS: BP 112/63
[2022-05-13 07:28] LABS: HEMATOCRIT. 36.9 % (42.0-52.0); HEMOGLOBIN. 12.1 g/dL (14.0-18.0); MEAN CORPUSCULAR HEMOGLOBIN 29.4 pg (28.0-32.0); MEAN CORPUSCULAR VOLUME 89.7 fL (80.0-94.0); MEAN PLATELET VOLUME 7.9 fl (7.4-10.4); PLATELET 237 x1000/uL (130-400); RED BLOOD CELL COUNT 4.11 mill/uL (4.7-6.1); RED CELL DISTRIBUTION WIDTH 14.7 % (11.6-14.6)
[2022-05-13 07:59] LABS: CHLORIDE 99 mEq/L (98-107)
[2022-05-13 08:00] VITALS: BP 101/71
[2022-05-13 08:09] LABS: PHOSPHORUS 3.6 mg/dL (2.5-4.9)
[2022-05-13] MEDS: FAMOTIDINE 20MG TABLET PO SCH ×2 (08:18→21:00)
[2022-05-13] MEDS: LOSARTAN POTASSIUM 50 MG TABLET PO SCH (08:18)
[2022-05-13] MEDS: ENOXAPARIN 150MG/ML SYR SUBCUT SCH ×2 (08:18→20:00)
[2022-05-13] MEDS: SPIRONOLACTONE 25MG TABLET PO SCH ×2 (08:18→21:00)
[2022-05-13] MEDS: SODIUM HYPOCHLORITE 0.125% 473ML SOLUTION TOP SCH ×2 (08:18→15:37)
[2022-05-13] MEDS: ASPIRIN 325MG EC TABLET PO SCH (08:18)
[2022-05-13] MEDS: FUROSEMIDE 40MG/4ML VIAL IVP SCH ×2 (08:18→21:00)
[2022-05-13 12:00] VITALS: BP 107/75
[2022-05-13 16:00] VITALS: BP 103/71
[2022-05-13 16:10] LABS: PLATELET ESTIMATE NORMAL
[2022-05-13 20:00] VITALS: BP 105/63
[2022-05-14] VITALS: BP 110/70
[2022-05-14] MEDS ORDERED: INSULIN REGULAR (HUMULIN R) 300UNITS/3ML VIAL IV NR (01:00)
[2022-05-14] MEDS ORDERED: DEXTROSE 50% WATER 50ML SYRINGE IV NR (01:00)
[2022-05-14 02:57] LABS: CHLORIDE 101 mEq/L (98-107)
[2022-05-14 08:00] VITALS: BP 96/60
[2022-05-14] MEDS: ENOXAPARIN 150MG/ML SYR SUBCUT SCH ×2 (08:00→21:44)
[2022-05-14 08:14] LABS: CHLORIDE 98 mEq/L (98-107)
[2022-05-14] MEDS: LOSARTAN POTASSIUM 50 MG TABLET PO SCH (09:00)
[2022-05-14] MEDS: FAMOTIDINE 20MG TABLET PO SCH ×2 (09:00→21:43)
[2022-05-14] MEDS: ASPIRIN 325MG EC TABLET PO SCH (09:00)
[2022-05-14] MEDS: SODIUM HYPOCHLORITE 0.125% 473ML SOLUTION TOP SCH ×2 (09:00→17:00)
[2022-05-14] MEDS: SPIRONOLACTONE 25MG TABLET PO SCH ×2 (09:00→21:43)
[2022-05-14 12:00] VITALS: BP 98/68
[2022-05-14] MEDS: FUROSEMIDE 40MG/4ML VIAL IVP SCH ×2 (14:53→21:44)
[2022-05-14 16:00] VITALS: BP 111/70
[2022-05-15] VITALS: BP 102/65
[2022-05-15 04:00] VITALS: BP 111/70
[2022-05-15 08:00] VITALS: BP 108/76
[2022-05-15] MEDS: ENOXAPARIN 150MG/ML SYR SUBCUT SCH ×2 (11:40→21:46)
[2022-05-15] MEDS: FUROSEMIDE 40MG/4ML VIAL IVP SCH ×2 (11:40→21:47)
[2022-05-15] MEDS: SPIRONOLACTONE 25MG TABLET PO SCH ×2 (11:41→21:47)
[2022-05-15] MEDS: ASPIRIN 325MG EC TABLET PO SCH (11:41)
[2022-05-15] MEDS: LOSARTAN POTASSIUM 50 MG TABLET PO SCH (11:41)
[2022-05-15] MEDS: FAMOTIDINE 20MG TABLET PO SCH ×2 (11:42→21:46)
[2022-05-15] MEDS: MAGNESIUM/ALUMINUM HYDROXIDE/SIMETHICONE 30ML UDC PO PRN (11:42)
[2022-05-15] MEDS: SODIUM HYPOCHLORITE 0.125% 473ML SOLUTION TOP SCH ×2 (11:42→16:24)
[2022-05-15] MEDS: DOCUSATE SODIUM 100MG CAPSULE PO PRN (11:42)
[2022-05-15] MEDS: ACETAMINOPHEN 325MG TABLET PO PRN (11:43)
[2022-05-15 12:00] VITALS: BP 97/68
[2022-05-15 16:00] VITALS: BP 92/64
[2022-05-15 16:37] LABS: HEMATOCRIT. 40.3 % (42.0-52.0); HEMOGLOBIN. 13.1 g/dL (14.0-18.0); MEAN CORPUSCULAR HEMOGLOBIN 29.3 pg (28.0-32.0); MEAN CORPUSCULAR VOLUME 89.8 fL (80.0-94.0); MEAN PLATELET VOLUME 8.3 fl (7.4-10.4); PLATELET 234 x1000/uL (130-400); RED BLOOD CELL COUNT 4.49 mill/uL (4.7-6.1); RED CELL DISTRIBUTION WIDTH 14.6 % (11.6-14.6)
[2022-05-15 16:56] LABS: CHLORIDE 95 mEq/L (98-107)
[2022-05-15 17:01] LABS: PHOSPHORUS 3.6 mg/dL (2.5-4.9)
[2022-05-15 17:13] LABS: PLATELET ESTIMATE NORMAL
[2022-05-15 20:00] VITALS: BP 94/54
[2022-05-16] VITALS: BP 105/69
[2022-05-16 08:00] VITALS: BP 102/70
[2022-05-16] MEDS: ENOXAPARIN 150MG/ML SYR SUBCUT SCH ×2 (08:00→22:14)
[2022-05-16] MEDS: SPIRONOLACTONE 25MG TABLET PO SCH ×2 (09:00→22:18)
[2022-05-16] MEDS: SODIUM HYPOCHLORITE 0.125% 473ML SOLUTION TOP SCH ×2 (09:00→17:00)
[2022-05-16] MEDS: ASPIRIN 325MG EC TABLET PO SCH (09:00)
[2022-05-16] MEDS: LOSARTAN POTASSIUM 50 MG TABLET PO SCH (09:00)
[2022-05-16] MEDS: FAMOTIDINE 20MG TABLET PO SCH ×2 (09:00→22:14)
[2022-05-16] MEDS: FUROSEMIDE 40MG/4ML VIAL IVP SCH ×2 (10:49→22:14)
[2022-05-16 12:00] VITALS: BP 93/60
[2022-05-16 16:00] VITALS: BP 93/52
[2022-05-16] MEDS: ACETAMINOPHEN 325MG TABLET PO PRN (16:00)
[2022-05-16] MEDS: MAGNESIUM/ALUMINUM HYDROXIDE/SIMETHICONE 30ML UDC PO PRN (16:01)
[2022-05-16] MEDS: DOCUSATE SODIUM 100MG CAPSULE PO PRN (16:04)
[2022-05-16 20:00] VITALS: BP 121/102
[2022-05-17] VITALS: BP 105/57
[2022-05-17 04:00] VITALS: BP 113/67
[2022-05-17 08:00] VITALS: BP 124/67
[2022-05-17 12:00] VITALS: BP 93/58
[2022-05-17] MEDS: FUROSEMIDE 40MG/4ML VIAL IVP SCH ×2 (12:28→21:50)
[2022-05-17] MEDS: ENOXAPARIN 150MG/ML SYR SUBCUT SCH ×2 (12:28→21:51)
[2022-05-17] MEDS: FAMOTIDINE 20MG TABLET PO SCH ×2 (12:29→21:50)
[2022-05-17] MEDS: SODIUM HYPOCHLORITE 0.125% 473ML SOLUTION TOP SCH ×2 (12:29→17:44)
[2022-05-17] MEDS: ASPIRIN 325MG EC TABLET PO SCH (12:29)
[2022-05-17] MEDS: SPIRONOLACTONE 25MG TABLET PO SCH ×2 (12:29→21:50)
[2022-05-17] MEDS: LOSARTAN POTASSIUM 50 MG TABLET PO SCH (12:29)
[2022-05-17] MEDS: DOCUSATE SODIUM 100MG CAPSULE PO PRN (12:30)
[2022-05-17] MEDS: ACETAMINOPHEN 325MG TABLET PO PRN ×2 (12:31→17:47)
[2022-05-17 16:00] VITALS: BP 93/60
[2022-05-17] MEDS: FLUOXETINE HCL 10 MG CAPSULE PO SCH (17:43)
[2022-05-17 20:00] VITALS: BP 98/54
[2022-05-17 21:01] LABS: EOSINOPHILS % 6.1 % (0.0-5.0); HEMATOCRIT. 36.6 % (42.0-52.0); LYMPHOCYTES % 38.6 % (20.0-50.0); MEAN CORPUSCULAR HEMOGLOBIN 29.4 pg (28.0-32.0); MEAN CORPUSCULAR VOLUME 90.1 fL (80.0-94.0); MEAN PLATELET VOLUME 8.3 fl (7.4-10.4); MONOCYTES % 9.7 % (2.0-8.0); NEUTROPHILS % 44.6 % (40.0-76.0); PLATELET 213 x1000/uL (130-400); RED BLOOD CELL COUNT 4.06 mill/uL (4.7-6.1); RED CELL DISTRIBUTION WIDTH 14.6 % (11.6-14.6)
[2022-05-17 21:06] LABS: CHLORIDE 99 mEq/L (98-107)
[2022-05-17 21:11] LABS: PHOSPHORUS 3.9 mg/dL (2.5-4.9)
[2022-05-18] VITALS: BP 99/59
[2022-05-18 04:00] VITALS: BP 121/60
[2022-05-18 07:02] LABS: BASOPHILS % 0.6 % (0.0-2.0); HEMATOCRIT. 34.7 % (42.0-52.0); HEMOGLOBIN. 11.5 g/dL (14.0-18.0); LYMPHOCYTES % 35.7 % (20.0-50.0); MEAN CORPUSCULAR HEMOGLOBIN 29.4 pg (28.0-32.0); MEAN CORPUSCULAR VOLUME 89.1 fL (80.0-94.0); MONOCYTES % 10.9 % (2.0-8.0); NEUTROPHILS % 46.8 % (40.0-76.0); PLATELET 223 x1000/uL (130-400); RED BLOOD CELL COUNT 3.89 mill/uL (4.7-6.1)
[2022-05-18 07:08] LABS: CHLORIDE 96 mEq/L (98-107)
[2022-05-18 08:00] VITALS: BP 90/60
[2022-05-18] MEDS: LOSARTAN POTASSIUM 50 MG TABLET PO SCH (09:00)
[2022-05-18 12:00] VITALS: BP 101/60
[2022-05-18 16:00] VITALS: BP 93/60
[2022-05-18] MEDS: SODIUM HYPOCHLORITE 0.125% 473ML SOLUTION TOP SCH ×2 (17:00→19:18)
[2022-05-18] MEDS: ACETAMINOPHEN 325MG TABLET PO PRN (19:13)
[2022-05-18] MEDS: ENOXAPARIN 150MG/ML SYR SUBCUT SCH ×2 (19:16→20:00)
[2022-05-18] MEDS: FUROSEMIDE 40MG/4ML VIAL IVP SCH ×2 (19:16→21:00)
[2022-05-18] MEDS: SPIRONOLACTONE 25MG TABLET PO SCH ×2 (19:17→21:00)
[2022-05-18] MEDS: ASPIRIN 325MG EC TABLET PO SCH (19:17)
[2022-05-18] MEDS: FAMOTIDINE 20MG TABLET PO SCH ×2 (19:18→21:00)
[2022-05-18] MEDS: FLUOXETINE HCL 10 MG CAPSULE PO SCH (19:18)
[2022-05-18] MEDS: MAGNESIUM/ALUMINUM HYDROXIDE/SIMETHICONE 30ML UDC PO PRN (19:19)
[2022-05-18] MEDS: DOCUSATE SODIUM 100MG CAPSULE PO PRN (19:19)
[2022-05-18 20:00] VITALS: BP 100/59
[2022-05-19] VITALS (7 sets, daily range): BP systolic 92–119; BP diastolic 51–96
[2022-05-19 07:48] LABS: BASOPHILS % 1.3 % (0.0-2.0); EOSINOPHILS % 5.5 % (0.0-5.0); HEMATOCRIT. 35.4 % (42.0-52.0); HEMOGLOBIN. 11.7 g/dL (14.0-18.0); LYMPHOCYTES % 33.7 % (20.0-50.0); MEAN CORPUSCULAR HEMOGLOBIN 29.6 pg (28.0-32.0); MEAN CORPUSCULAR VOLUME 89.2 fL (80.0-94.0); MEAN PLATELET VOLUME 8.4 fl (7.4-10.4); MONOCYTES % 9.8 % (2.0-8.0); NEUTROPHILS % 49.7 % (40.0-76.0); PLATELET 235 x1000/uL (130-400); RED BLOOD CELL COUNT 3.96 mill/uL (4.7-6.1); RED CELL DISTRIBUTION WIDTH 14.7 % (11.6-14.6)
[2022-05-19 08:05] LABS: CHLORIDE 96 mEq/L (98-107)
[2022-05-19 08:15] LABS: PHOSPHORUS 3.6 mg/dL (2.5-4.9)
[2022-05-19] MEDS: FUROSEMIDE 40MG/4ML VIAL IVP SCH ×2 (09:00→21:52)
[2022-05-19] MEDS: ENOXAPARIN 150MG/ML SYR SUBCUT SCH ×2 (09:00→22:00)
[2022-05-19] MEDS: LOSARTAN POTASSIUM 50 MG TABLET PO SCH (09:01)
[2022-05-19] MEDS: SPIRONOLACTONE 25MG TABLET PO SCH ×2 (09:01→21:59)
[2022-05-19] MEDS: ASPIRIN 325MG EC TABLET PO SCH (09:02)
[2022-05-19] MEDS: FAMOTIDINE 20MG TABLET PO SCH ×2 (09:02→21:59)
[2022-05-19] MEDS: FLUOXETINE HCL 10 MG CAPSULE PO SCH (09:02)
[2022-05-19] MEDS: SODIUM HYPOCHLORITE 0.125% 473ML SOLUTION TOP SCH ×2 (09:03→17:00)
[2022-05-19] MEDS: MAGNESIUM/ALUMINUM HYDROXIDE/SIMETHICONE 30ML UDC PO PRN (09:03)
[2022-05-19] MEDS: DOCUSATE SODIUM 100MG CAPSULE PO PRN (09:03)
[2022-05-19] MEDS: ACETAMINOPHEN 325MG TABLET PO PRN (09:04)
[2022-05-20] VITALS: BP 113/68
[2022-05-20 04:00] VITALS: BP 113/68
[2022-05-20 08:00] VITALS: BP 104/67
[2022-05-20] MEDS: ENOXAPARIN 150MG/ML SYR SUBCUT SCH ×2 (09:46→21:23)
[2022-05-20] MEDS: LOSARTAN POTASSIUM 50 MG TABLET PO SCH (09:46)
[2022-05-20] MEDS: SPIRONOLACTONE 25MG TABLET PO SCH (09:46)
[2022-05-20] MEDS: FUROSEMIDE 40MG/4ML VIAL IVP SCH (09:46)
[2022-05-20] MEDS: ASPIRIN 325MG EC TABLET PO SCH (09:47)
[2022-05-20] MEDS: FLUOXETINE HCL 10 MG CAPSULE PO SCH (09:47)
[2022-05-20] MEDS: SODIUM HYPOCHLORITE 0.125% 473ML SOLUTION TOP SCH ×2 (09:47→17:56)
[2022-05-20] MEDS: FAMOTIDINE 20MG TABLET PO SCH ×2 (09:47→21:17)
[2022-05-20] MEDS: MAGNESIUM/ALUMINUM HYDROXIDE/SIMETHICONE 30ML UDC PO PRN (09:48)
[2022-05-20] MEDS: DOCUSATE SODIUM 100MG CAPSULE PO PRN (09:48)
[2022-05-20] MEDS: ACETAMINOPHEN 325MG TABLET PO PRN (09:48)
[2022-05-20 12:00] VITALS: BP 88/57
[2022-05-20 16:00] VITALS: BP 104/60
[2022-05-20 20:00] VITALS: BP 99/58
[2022-05-21] VITALS: BP 95/52
[2022-05-21 04:00] VITALS: BP 106/67
[2022-05-21 06:50] LABS: EOSINOPHILS % 5.1 % (0.0-5.0); HEMATOCRIT. 33.3 % (42.0-52.0); LYMPHOCYTES % 31.3 % (20.0-50.0); MEAN CORPUSCULAR HEMOGLOBIN 29.7 pg (28.0-32.0); MEAN PLATELET VOLUME 8.6 fl (7.4-10.4); MONOCYTES % 11.9 % (2.0-8.0); NEUTROPHILS % 50.7 % (40.0-76.0); PLATELET 222 x1000/uL (130-400); RED CELL DISTRIBUTION WIDTH 14.9 % (11.6-14.6)
[2022-05-21 07:18] LABS: PHOSPHORUS 3.9 mg/dL (2.5-4.9)
[2022-05-21 08:00] VITALS: BP 101/64
[2022-05-21] MEDS: LOSARTAN POTASSIUM 50 MG TABLET PO SCH (09:12)
[2022-05-21] MEDS: ASPIRIN 325MG EC TABLET PO SCH (09:12)
[2022-05-21] MEDS: FLUOXETINE HCL 10 MG CAPSULE PO SCH (09:12)
[2022-05-21] MEDS: FAMOTIDINE 20MG TABLET PO SCH ×2 (09:12→20:02)
[2022-05-21] MEDS: ENOXAPARIN 150MG/ML SYR SUBCUT SCH ×2 (09:13→20:03)
[2022-05-21] MEDS: SODIUM HYPOCHLORITE 0.125% 473ML SOLUTION TOP SCH ×2 (09:14→17:00)
[2022-05-21 12:00] VITALS: BP 109/59
[2022-05-21 16:00] VITALS: BP 116/62
[2022-05-21 20:00] VITALS: BP 92/47
[2022-05-22] VITALS: BP 86/58
[2022-05-22 04:00] VITALS: BP 109/70
[2022-05-22 08:00] VITALS: BP 121/68
[2022-05-22] MEDS: SODIUM HYPOCHLORITE 0.125% 473ML SOLUTION TOP SCH ×2 (09:00→17:00)
[2022-05-22] MEDS: FAMOTIDINE 20MG TABLET PO SCH ×2 (09:10→20:52)
[2022-05-22] MEDS: FLUOXETINE HCL 10 MG CAPSULE PO SCH (09:10)
[2022-05-22] MEDS: ASPIRIN 325MG EC TABLET PO SCH (09:10)
[2022-05-22] MEDS: LOSARTAN POTASSIUM 50 MG TABLET PO SCH (09:10)
[2022-05-22] MEDS: ENOXAPARIN 150MG/ML SYR SUBCUT SCH ×2 (09:11→20:52)
[2022-05-22 10:49] LABS: BASOPHILS % 1.2 % (0.0-2.0); EOSINOPHILS % 4.4 % (0.0-5.0); HEMATOCRIT. 30.3 % (42.0-52.0); HEMOGLOBIN. 10.3 g/dL (14.0-18.0); LYMPHOCYTES % 25.5 % (20.0-50.0); MEAN CORPUSCULAR HEMOGLOBIN 30.3 pg (28.0-32.0); MEAN CORPUSCULAR VOLUME 89.4 fL (80.0-94.0); MEAN PLATELET VOLUME 8.6 fl (7.4-10.4); MONOCYTES % 10.4 % (2.0-8.0); NEUTROPHILS % 58.5 % (40.0-76.0); PLATELET 243 x1000/uL (130-400); RED CELL DISTRIBUTION WIDTH 14.5 % (11.6-14.6)
[2022-05-22 10:57] LABS: CHLORIDE 97 mEq/L (98-107)
[2022-05-22 11:02] LABS: PHOSPHORUS 3.6 mg/dL (2.5-4.9)
[2022-05-22 12:00] VITALS: BP 102/64
[2022-05-22 16:00] VITALS: BP 107/60
[2022-05-22 20:00] VITALS: BP_SYST 80; BP_SYST 94; BP_DIAS 47; BP_DIAS 50
[2022-05-23] VITALS: BP 86/53
[2022-05-23 04:00] VITALS: BP 96/49
[2022-05-23 08:00] VITALS: BP 100/57
[2022-05-23] MEDS: ENOXAPARIN 150MG/ML SYR SUBCUT SCH ×2 (08:00→20:00)
[2022-05-23] MEDS: LOSARTAN POTASSIUM 50 MG TABLET PO SCH (09:00)
[2022-05-23] MEDS: FAMOTIDINE 20MG TABLET PO SCH ×2 (09:05→21:51)
[2022-05-23] MEDS: FLUOXETINE HCL 10 MG CAPSULE PO SCH (09:05)
[2022-05-23] MEDS: ASPIRIN 325MG EC TABLET PO SCH (09:05)
[2022-05-23 12:21] VITALS: BP 116/60
[2022-05-23 20:00] VITALS: BP 99/63
[2022-05-24] VITALS: BP 112/65
[2022-05-24 06:59] LABS: EOSINOPHILS % 5.5 % (0.0-5.0); HEMATOCRIT. 26.5 % (42.0-52.0); LYMPHOCYTES % 29.8 % (20.0-50.0); MEAN CORPUSCULAR HEMOGLOBIN 30.4 pg (28.0-32.0); MEAN CORPUSCULAR VOLUME 89.6 fL (80.0-94.0); MEAN PLATELET VOLUME 8.2 fl (7.4-10.4); MONOCYTES % 10.1 % (2.0-8.0); NEUTROPHILS % 53.6 % (40.0-76.0); PLATELET 244 x1000/uL (130-400); RED BLOOD CELL COUNT 2.96 mill/uL (4.7-6.1)
[2022-05-24 07:17] LABS: CHLORIDE 102 mEq/L (98-107)
[2022-05-24 07:20] LABS: PHOSPHORUS 3.9 mg/dL (2.5-4.9)
[2022-05-24 08:00] VITALS: BP 116/75
[2022-05-24] MEDS: LOSARTAN POTASSIUM 50 MG TABLET PO SCH (09:26)
[2022-05-24] MEDS: FAMOTIDINE 20MG TABLET PO SCH ×2 (09:26→20:51)
[2022-05-24] MEDS: ENOXAPARIN 150MG/ML SYR SUBCUT SCH ×2 (09:26→20:51)
[2022-05-24] MEDS: ASPIRIN 325MG EC TABLET PO SCH (09:26)
[2022-05-24] MEDS: FLUOXETINE HCL 10 MG CAPSULE PO SCH (09:26)
[2022-05-24 12:00] VITALS: BP 125/89
[2022-05-24 16:00] VITALS: BP 129/94
[2022-05-24 20:00] VITALS: BP 94/59
[2022-05-25] VITALS: BP 97/59
[2022-05-25 04:00] VITALS: BP 107/74
[2022-05-25 06:57] LABS: BASOPHILS % 0.5 % (0.0-2.0); EOSINOPHILS % 4.3 % (0.0-5.0); HEMATOCRIT. 26.9 % (42.0-52.0); HEMOGLOBIN. 9.1 g/dL (14.0-18.0); LYMPHOCYTES % 28.7 % (20.0-50.0); MEAN CORPUSCULAR HEMOGLOBIN 30.4 pg (28.0-32.0); MEAN CORPUSCULAR VOLUME 90.1 fL (80.0-94.0); MEAN PLATELET VOLUME 8.2 fl (7.4-10.4); NEUTROPHILS % 56.5 % (40.0-76.0); PLATELET 263 x1000/uL (130-400); RED BLOOD CELL COUNT 2.99 mill/uL (4.7-6.1)
[2022-05-25 07:27] LABS: CHLORIDE 102 mEq/L (98-107)
[2022-05-25 07:36] LABS: PHOSPHORUS 3.7 mg/dL (2.5-4.9)
[2022-05-25 08:00] VITALS: BP 110/75
[2022-05-25] MEDS: ENOXAPARIN 150MG/ML SYR SUBCUT SCH ×2 (08:47→21:56)
[2022-05-25] MEDS: FAMOTIDINE 20MG TABLET PO SCH ×2 (08:48→21:56)
[2022-05-25] MEDS: ASPIRIN 325MG EC TABLET PO SCH (08:48)
[2022-05-25] MEDS: FLUOXETINE HCL 20MG CAPSULE PO SCH (08:49)
[2022-05-25 12:00] VITALS: BP 128/76
[2022-05-25 16:00] VITALS: BP 122/74
[2022-05-25 20:00] VITALS: BP 128/92
[2022-05-26] VITALS: BP 108/68
[2022-05-26 04:00] VITALS: BP 122/76
[2022-05-26 08:00] VITALS: BP 108/67
[2022-05-26 08:05] LABS: BASOPHILS % 1.4 % (0.0-2.0); EOSINOPHILS % 3.9 % (0.0-5.0); HEMATOCRIT. 27.6 % (42.0-52.0); HEMOGLOBIN. 9.3 g/dL (14.0-18.0); LYMPHOCYTES % 22.5 % (20.0-50.0); MEAN CORPUSCULAR HEMOGLOBIN 30.4 pg (28.0-32.0); MEAN PLATELET VOLUME 8.5 fl (7.4-10.4); NEUTROPHILS % 62.2 % (40.0-76.0); PLATELET 283 x1000/uL (130-400); RED BLOOD CELL COUNT 3.06 mill/uL (4.7-6.1); RED CELL DISTRIBUTION WIDTH 15.2 % (11.6-14.6)
[2022-05-26 08:25] LABS: CHLORIDE 104 mEq/L (98-107)
[2022-05-26] MEDS: FLUOXETINE HCL 20MG CAPSULE PO SCH (08:26)
[2022-05-26] MEDS: ENOXAPARIN 150MG/ML SYR SUBCUT SCH ×2 (08:26→20:39)
[2022-05-26] MEDS: ASPIRIN 325MG EC TABLET PO SCH (08:27)
[2022-05-26] MEDS: SODIUM HYPOCHLORITE 0.125% 473ML SOLUTION TOP SCH (09:00)
[2022-05-26] MEDS: ACETAMINOPHEN 650MG/20.3ML UDC PO PRN (10:41)
[2022-05-26 12:00] VITALS: BP 116/80
[2022-05-26 16:00] VITALS: BP 113/60
[2022-05-26] MEDS: MULTIVITAMINS,THER W-MINERALS TABLET PO SCH (17:56)
[2022-05-26 20:00] VITALS: BP 110/61
[2022-05-27] VITALS: BP 109/73
[2022-05-27 04:00] VITALS: BP 115/58
[2022-05-27 08:10] VITALS: BP 121/75
[2022-05-27] MEDS: SODIUM HYPOCHLORITE 0.125% 473ML SOLUTION TOP SCH (09:00)
[2022-05-27] MEDS: ENOXAPARIN 150MG/ML SYR SUBCUT SCH ×2 (09:29→20:00)
[2022-05-27] MEDS: FLUOXETINE HCL 20MG CAPSULE PO SCH (09:29)
[2022-05-27] MEDS: MULTIVITAMINS,THER W-MINERALS TABLET PO SCH (09:29)
[2022-05-27 12:00] VITALS: BP 100/76
[2022-05-27 16:42] VITALS: BP_SYST 112
[2022-05-27 20:00] VITALS: BP 124/76
[2022-05-28 00:17] VITALS: BP 95/62
[2022-05-28 04:00] VITALS: BP 112/75
[2022-05-28 08:00] VITALS: BP 120/81
[2022-05-28] MEDS: MULTIVITAMINS,THER W-MINERALS TABLET PO SCH (10:14)
[2022-05-28] MEDS: ENOXAPARIN 150MG/ML SYR SUBCUT SCH ×2 (10:14→21:20)
[2022-05-28] MEDS: FLUOXETINE HCL 20MG CAPSULE PO SCH (10:14)
[2022-05-28 12:00] VITALS: BP 139/80
[2022-05-28 16:00] VITALS: BP 105/71
[2022-05-28 20:00] VITALS: BP 125/83
[2022-05-28] MEDS: ACETAMINOPHEN 650MG/20.3ML UDC PO PRN (21:20)
[2022-05-29] VITALS: BP 107/69
[2022-05-29 04:00] VITALS: BP 118/83
[2022-05-29 08:00] VITALS: BP 114/69
[2022-05-29] MEDS: MULTIVITAMINS,THER W-MINERALS TABLET PO SCH (09:38)
[2022-05-29] MEDS: FLUOXETINE HCL 20MG CAPSULE PO SCH (09:39)
[2022-05-29 10:10] LABS: BASOPHILS % 0.4 % (0.0-2.0); EOSINOPHILS % 3.4 % (0.0-5.0); HEMATOCRIT. 26.8 % (42.0-52.0); HEMOGLOBIN. 9.1 g/dL (14.0-18.0); MEAN CORPUSCULAR HEMOGLOBIN 30.8 pg (28.0-32.0); MEAN CORPUSCULAR VOLUME 90.3 fL (80.0-94.0); MEAN PLATELET VOLUME 7.6 fl (7.4-10.4); MONOCYTES % 10.4 % (2.0-8.0); NEUTROPHILS % 65.8 % (40.0-76.0); PLATELET 289 x1000/uL (130-400); RED BLOOD CELL COUNT 2.97 mill/uL (4.7-6.1); RED CELL DISTRIBUTION WIDTH 15.3 % (11.6-14.6)
[2022-05-29 10:45] LABS: CHLORIDE 102 mEq/L (98-107)
[2022-05-29 10:53] LABS: PHOSPHORUS 3.1 mg/dL (2.5-4.9)
[2022-05-29 12:00] VITALS: BP 116/78
[2022-05-29] MEDS: ENOXAPARIN 150MG/ML SYR SUBCUT SCH ×2 (12:13→22:55)
[2022-05-29 16:00] VITALS: BP 138/95
[2022-05-29] MEDS: ACETAMINOPHEN 650MG/20.3ML UDC PO PRN (16:05)
[2022-05-29 20:00] VITALS: BP 118/79
[2022-05-30] VITALS: BP 122/76
[2022-05-30 04:00] VITALS: BP 108/77
[2022-05-30 08:00] VITALS: BP 105/70
[2022-05-30] MEDS: ENOXAPARIN 150MG/ML SYR SUBCUT SCH ×2 (08:56→21:17)
[2022-05-30] MEDS: MULTIVITAMINS,THER W-MINERALS TABLET PO SCH (08:56)
[2022-05-30] MEDS: FLUOXETINE HCL 20MG CAPSULE PO SCH (10:47)
[2022-05-30 12:00] VITALS: BP 105/56
[2022-05-30] MEDS: ACETAMINOPHEN 650MG/20.3ML UDC PO PRN (15:34)
[2022-05-30 16:00] VITALS: BP 138/88
[2022-05-30 20:00] VITALS: BP 120/62
[2022-05-31] VITALS: BP 122/64
[2022-05-31] MEDS: ENOXAPARIN 150MG/ML SYR SUBCUT SCH ×3 (06:46→22:11)
[2022-05-31 08:00] VITALS: BP 110/76
[2022-05-31] MEDS: FLUOXETINE HCL 20MG CAPSULE PO SCH (10:10)
[2022-05-31] MEDS: MULTIVITAMINS,THER W-MINERALS TABLET PO SCH (10:10)
[2022-05-31 12:00] VITALS: BP 101/59
[2022-05-31 16:00] VITALS: BP 116/71
[2022-05-31 20:00] VITALS: BP 136/74
[2022-06-01] VITALS: BP 124/83
[2022-06-01 08:00] VITALS: BP 128/84
[2022-06-01] MEDS: FLUOXETINE HCL 20MG CAPSULE PO SCH (09:00)
[2022-06-01] MEDS: MULTIVITAMINS,THER W-MINERALS TABLET PO SCH (09:00)
[2022-06-01 12:00] VITALS: BP 122/88
[2022-06-01] MEDS ORDERED: LACTULOSE 20G/30ML UDC PO NR (12:00)
[2022-06-01] MEDS ORDERED: NA PHOS,M-B/NA PHOS,DI-BA ENEMA 118ML PR NR (13:00)
[2022-06-01 16:00] VITALS: BP 131/80
[2022-06-01] MEDS: RIVAROXABAN 10 MG TABLET PO SCH (16:47)
[2022-06-01 20:00] VITALS: BP 128/79
[2022-06-02] VITALS: BP 122/85
[2022-06-02 04:00] VITALS: BP 132/76
[2022-06-02 08:00] VITALS: BP 117/81
[2022-06-02] MEDS: MULTIVITAMINS,THER W-MINERALS TABLET PO SCH (09:17)
[2022-06-02] MEDS: FLUOXETINE HCL 20MG CAPSULE PO SCH (09:17)
[2022-06-02 12:00] VITALS: BP 121/74
[2022-06-02 16:00] VITALS: BP 117/75
[2022-06-02] MEDS: RIVAROXABAN 10 MG TABLET PO SCH (18:40)
[2022-06-02 20:00] VITALS: BP 122/68
[2022-06-03] VITALS: BP 118/73
[2022-06-03 04:00] VITALS: BP 116/73
[2022-06-03 08:00] VITALS: BP 128/76
[2022-06-03] MEDS: MULTIVITAMINS,THER W-MINERALS TABLET PO SCH (09:41)
[2022-06-03] MEDS: FLUOXETINE HCL 20MG CAPSULE PO SCH (09:41)
[2022-06-03 12:00] VITALS: BP 126/80
[2022-06-03 16:00] VITALS: BP 123/77
[2022-06-03] MEDS: RIVAROXABAN 10 MG TABLET PO SCH (18:20)
[2022-06-03 20:00] VITALS: BP 136/76
[2022-06-04] VITALS: BP 117/78
[2022-06-04 04:00] VITALS: BP 131/80
[2022-06-04 08:00] VITALS: BP 110/76
[2022-06-04] MEDS: MULTIVITAMINS,THER W-MINERALS TABLET PO SCH (08:15)
[2022-06-04] MEDS: FLUOXETINE HCL 20MG CAPSULE PO SCH (08:15)
[2022-06-04 12:00] VITALS: BP 119/77
[2022-06-04 16:00] VITALS: BP 130/81
[2022-06-04] MEDS: RIVAROXABAN 20 MG TABLET PO SCH (17:12)
[2022-06-04 21:07] VITALS: BP 133/76
[2022-06-05] MEDS: FLUOXETINE HCL 20MG CAPSULE PO SCH (09:58)
[2022-06-05] MEDS: MULTIVITAMINS,THER W-MINERALS TABLET PO SCH (09:58)
[2022-06-05] MEDS: RIVAROXABAN 20 MG TABLET PO SCH (19:39)
[2022-06-05 20:00] VITALS: BP 120/79
[2022-06-06] VITALS: BP 125/79
[2022-06-06 04:00] VITALS: BP 113/73
[2022-06-06 08:00] VITALS: BP 125/72
[2022-06-06] MEDS: FLUOXETINE HCL 20MG CAPSULE PO SCH (08:19)
[2022-06-06] MEDS: MULTIVITAMINS,THER W-MINERALS TABLET PO SCH (08:19)
[2022-06-06 12:00] VITALS: BP 136/79
[2022-06-06 16:00] VITALS: BP 135/77
[2022-06-06] MEDS: RIVAROXABAN 20 MG TABLET PO SCH (17:05)
[2022-06-06 20:00] VITALS: BP 116/83
[2022-06-07] VITALS: BP 118/65
[2022-06-07 04:00] VITALS: BP 112/64
[2022-06-07 08:00] VITALS: BP 123/80
[2022-06-07] MEDS: MULTIVITAMINS,THER W-MINERALS TABLET PO SCH (09:37)
[2022-06-07] MEDS: FLUOXETINE HCL 20MG CAPSULE PO SCH (09:37)
[2022-06-07 12:00] VITALS: BP 107/81
[2022-06-07 16:00] VITALS: BP 113/54
[2022-06-07] MEDS: RIVAROXABAN 20 MG TABLET PO SCH (17:36)
[2022-06-07 20:00] VITALS: BP 135/85
[2022-06-08] VITALS: BP 117/76
[2022-06-08 04:00] VITALS: BP 121/79
[2022-06-08 08:00] VITALS: BP 119/84
[2022-06-08] MEDS: FLUOXETINE HCL 20MG CAPSULE PO SCH (08:36)
[2022-06-08] MEDS: MULTIVITAMINS,THER W-MINERALS TABLET PO SCH (08:36)
[2022-06-08 12:00] VITALS: BP 116/73
[2022-06-08 16:00] VITALS: BP 117/77
[2022-06-08] MEDS: RIVAROXABAN 20 MG TABLET PO SCH (17:18)
[2022-06-09 08:00] VITALS: BP 134/71
[2022-06-09] MEDS: DOCUSATE SODIUM 250MG CAPSULE PO PRN (09:31)
[2022-06-09] MEDS: MULTIVITAMINS,THER W-MINERALS TABLET PO SCH (09:31)
[2022-06-09] MEDS: FLUOXETINE HCL 20MG CAPSULE PO SCH (09:31)
[2022-06-09 10:52] LABS: BASOPHILS % 0.9 % (0.0-2.0); EOSINOPHILS % 2.9 % (0.0-5.0); HEMATOCRIT. 30.5 % (42.0-52.0); HEMOGLOBIN. 10.2 g/dL (14.0-18.0); LYMPHOCYTES % 23.8 % (20.0-50.0); MEAN CORPUSCULAR HEMOGLOBIN 30.7 pg (28.0-32.0); MEAN CORPUSCULAR VOLUME 91.9 fL (80.0-94.0); MONOCYTES % 5.5 % (2.0-8.0); NEUTROPHILS % 66.9 % (40.0-76.0); PLATELET 302 x1000/uL (130-400); RED BLOOD CELL COUNT 3.32 mill/uL (4.7-6.1)
[2022-06-09 11:09] LABS: CHLORIDE 106 mEq/L (98-107)
[2022-06-09 12:00] VITALS: BP 147/78
[2022-06-09 16:00] VITALS: BP 116/67
[2022-06-09] MEDS: RIVAROXABAN 20 MG TABLET PO SCH (16:05)
[2022-06-10] MEDS: MULTIVITAMINS,THER W-MINERALS TABLET PO SCH (10:28)
[2022-06-10] MEDS: FLUOXETINE HCL 20MG CAPSULE PO SCH (10:28)
[2022-06-10] MEDS: DOCUSATE SODIUM 250MG CAPSULE PO PRN (10:28)
[2022-06-10] MEDS: RIVAROXABAN 20 MG TABLET PO SCH (17:36)
[2022-06-10 20:00] VITALS: BP 110/82
[2022-06-11] VITALS: BP 125/80
[2022-06-11 04:00] VITALS: BP 125/80
[2022-06-11 08:00] VITALS: BP 122/68
[2022-06-11] MEDS: ACETAMINOPHEN 650MG/20.3ML UDC PO PRN (08:58)
[2022-06-11] MEDS: FLUOXETINE HCL 20MG CAPSULE PO SCH (08:58)
[2022-06-11] MEDS: MULTIVITAMINS,THER W-MINERALS TABLET PO SCH (08:58)
[2022-06-11 12:00] VITALS: BP 134/47
[2022-06-11 16:00] VITALS: BP 125/60
[2022-06-11] MEDS: RIVAROXABAN 20 MG TABLET PO SCH (17:41)
[2022-06-11 20:00] VITALS: BP 117/73
[2022-06-12 02:02] VITALS: BP 118/75
[2022-06-12 08:00] VITALS: BP 114/79
[2022-06-12] MEDS: MULTIVITAMINS,THER W-MINERALS TABLET PO SCH (08:26)
[2022-06-12] MEDS: FLUOXETINE HCL 20MG CAPSULE PO SCH (08:26)
[2022-06-12 12:00] VITALS: BP 108/68
[2022-06-12 16:00] VITALS: BP 150/87
[2022-06-12] MEDS: RIVAROXABAN 20 MG TABLET PO SCH (17:59)
[2022-06-13] VITALS: BP 125/82
[2022-06-13 08:00] VITALS: BP 137/98
[2022-06-13] MEDS: FLUOXETINE HCL 20MG CAPSULE PO SCH (09:23)
[2022-06-13] MEDS: MULTIVITAMINS,THER W-MINERALS TABLET PO SCH (09:23)
[2022-06-13 12:00] VITALS: BP 133/92
[2022-06-13 12:25] VITALS: BP 127/69
== END 2022-06-13 18:27 | DRG 710 ==
LOC: ER 12:55 → MICUSO 18:29 → 8WST 04-28 11:16 → 6EST 05-08 21:15 → 5WST 05-23 13:45
PROVIDERS: ADMIT Internal Medicine; ATTEND Internal Medicine
PROC: 0KBP0ZZ Excision of Left Hip Muscle, Open Approach (ICD-10-PCS; principal; 2022-04-30)
PROC: 05HY33Z Insertion of Infusion Device into Upper Vein, Percutaneous Approach (ICD-10-PCS; 2022-04-30)
PROC: B54MZZA Ultrasonography of Right Upper Extremity Veins, Guidance (ICD-10-PCS; 2022-04-30)
PROC: 0LBT0ZZ Excision of Left Ankle Tendon, Open Approach (ICD-10-PCS; 2022-05-01)
PROC: 0LBV0ZZ Excision of Right Foot Tendon, Open Approach (ICD-10-PCS; 2022-05-01)
PROC: 0JBR0ZZ Excision of Left Foot Subcutaneous Tissue and Fascia, Open Approach (ICD-10-PCS; 2022-05-01)
PROC: 0KBP0ZZ Excision of Left Hip Muscle, Open Approach (ICD-10-PCS; 2022-05-07)
PROC: 0LBV0ZZ Excision of Right Foot Tendon, Open Approach (ICD-10-PCS; 2022-05-08)
PROC: 0LBT0ZZ Excision of Left Ankle Tendon, Open Approach (ICD-10-PCS; 2022-05-08)
PROC: 0JBR0ZZ Excision of Left Foot Subcutaneous Tissue and Fascia, Open Approach (ICD-10-PCS; 2022-05-08)
PROC: 0LBV0ZZ Excision of Right Foot Tendon, Open Approach (ICD-10-PCS; 2022-05-15)
PROC: 0LBV0ZZ Excision of Right Foot Tendon, Open Approach (ICD-10-PCS; 2022-05-22)
PROC: 0LBV0ZZ Excision of Right Foot Tendon, Open Approach (ICD-10-PCS; 2022-06-02)
DX: A41.9 Sepsis, unspecified organism (principal); I33.0 Acute and subacute infective endocarditis; I50.33 Acute on chronic diastolic (congestive) heart failure; E43 Unspecified severe protein-calorie malnutrition; L89.224 Pressure ulcer of left hip, stage 4; N17.9 Acute kidney failure, unspecified; I74.10 Embolism and thrombosis of unspecified parts of aorta; F33.1 Major depressive disorder, recurrent, moderate; S30.1XXA Contusion of abdominal wall, initial encounter; G82.20 Paraplegia, unspecified; I11.0 Hypertensive heart disease with heart failure; L89.614 Pressure ulcer of right heel, stage 4; L89.623 Pressure ulcer of left heel, stage 3; L89.523 Pressure ulcer of left ankle, stage 3; E86.0 Dehydration; Z20.822 Contact with and (suspected) exposure to COVID-19; R29.6 Repeated falls; D64.9 Anemia, unspecified; E87.6 Hypokalemia; E83.42 Hypomagnesemia; I49.3 Ventricular premature depolarization; E80.6 Other disorders of bilirubin metabolism; S20.412A Abrasion of left back wall of thorax, initial encounter; E66.9 Obesity, unspecified; R73.9 Hyperglycemia, unspecified; Z91.14 Patient's other noncompliance with medication regimen; Z86.718 Personal history of other venous thrombosis and embolism; Z91.81 History of falling; Z91.013 Allergy to seafood; Z68.41 Body mass index [BMI] 40.0-44.9, adult; Z87.891 Personal history of nicotine dependence; Z79.01 Long term (current) use of anticoagulants; X58.XXXA Exposure to other specified factors, initial encounter; Y93.9 Activity, unspecified; Y92.89 Other specified places as the place of occurrence of the external cause; Y99.8 Other external cause status
CPT/HCPCS: 36415; 36573; 36600; 71045; 71275; 74174; 74176; 80048; 80053; 80061; 80202; 80307; 80320; 80329; 82040; 82375; 82550; 82553; 82607; 82746; 82805; 82962; 83036; 83540; 83550; 83605; 83735; 83880; 84100; 84134; 84145; 84439; 84443; 84484; 85025; 85027; 85651; 86850; 86900; 87070; 87077; 87186; 87426; 93005; 93306; 93312; 93923; 93970; 97110; 97112; 97162; 97166; 97168; 97530; 97535; 99291; A6261; C1725; J0456; J0696; J1650; J1885; J1940; J2250; J2405; J2543; J3010; J3370; J3475; J7030; J7060; Q9967; G0480